=== PATIENT | female | born 1975 | race Caucasian/White ===

== ENCOUNTER 2017-08-25 16:11 | Inpatient (IN) | payer MEDICAID ==
[2017-08-25] VITALS (33 sets, daily range): BP systolic 53–176; BP diastolic 36–122; PULSE 74–91; RESP 12–38; TEMP 93; O2SAT 99–100
[~2017-08-25] VITALS: Ht 167.6 cm; Wt 80.3 kg
[~2017-08-25 16:11] MED LIST: DICL75 PO; IBUP600T26 PO; LEXA20TA PO; SERO100T PO
--- NOTE | 2017-08-25 16:19 | PD ---
HPI Chief Complaint: Status post arrest Time Seen by Provider: 16:19 Travel History International Travel<30 days: No Contact w/Intl Traveler<30days: No Traveled to known affect area: No History of Present Illness HPI Per EMS patient apparently just released from [facility] yesterday, she has had a hard time dealing with the fact that her significant other overdose and . And the family has mentioned that she has threatened in the past to commit suicide, apparently the patient has access not only to opiates on the streets but also sees prescribed benzodiazepines such as Xanax. Per chart review allergic to Keflex Per chart review past medical history significant for Dilaudid IV use, caffeine use, half a pack per day smoking history, bipolar history, depression anxiety, tubal ligation, PFSH Past Medical History Bipolar Disorder: Yes Anxiety: Yes Depression: Yes Cancer: No Cardiovascular Problems: No Diminished Hearing: No Endocrine: No Genitourinary: No Immune Disorder: No Insomnia: Yes Musculoskeletal: No Neurologic: Yes Psychiatric: Yes Reproductive: No (VAGINAL DELIVERIES X4) Respiratory: No Immunizations Current: No Para: 4 Tubal Ligation: Yes Past Surgical History Body Medical Devices: PIERCING OF NOSE,TONGUE AND BILATERAL EARS- NO JEWELRY IN PLACE Gynecologic Surgery: Yes (TUBAL) Social History Alcohol Use: No Tobacco Use: Yes (1/2 ppd) Substance Use: Yes (LAST USE "DILAUDID IV" AT 5 PM) Allergies-Medications (Allergen,Severity, Reaction): Coded Allergies: cephalexin (Unverified Allergy, Severe, 01/05/17) Reported Meds & Prescriptions Reported Meds & Active Scripts Active Diclofenac Sodium 75 Mg Tab 75 Mg PO BID PRN 10 Days Reported Lexapro (Escitalopram Oxalate) 20 Mg Tab 20 Mg PO DAILY Seroquel 100 mg (Quetiapine Fumarate) 100 Mg Tab 100 Mg PO BID Ibuprofen 600 Mg Tab 600 Mg PO QID PRN Review of Systems ROS Limitations: Clinical Condition Physical Exam Exam Limitations: Intoxication Narrative GENERAL: SKIN: Warm and dry. HEAD: Atraumatic. Normocephalic. EYES: Pupils equal and round. No scleral icterus. No injection or drainage. ENT: No nasal bleeding or discharge. Mucous membranes pink and moist. Intubated with a 7.5 ETT NECK: Trachea midline. No JVD. CARDIOVASCULAR: Regular rate and rhythm. RESPIRATORY: No accessory muscle use. Clear to auscultation. Breath sounds equal bilaterally. GASTROINTESTINAL: Abdomen soft, non-tender, nondistended. Hepatic and splenic margins not palpable. MUSCULOSKELETAL: Extremities without clubbing, cyanosis, or edema. No obvious deformities. NEUROLOGICAL: GCS 3 T PSYCHIATRIC: Unable to assess. Data Data Last Documented VS Vital Signs Date Time Temp Pulse Resp B/P (MAP) Pulse Ox O2 Delivery O2 Flow Rate FiO2 08/25/17 16:24 Ventilator 100 08/25/17 16:17 82 17 98/63 (75) 100 Orders Orders Electrocardiogram (08/25/17 16:20) Complete Blood Count With Diff (08/25/17 16:20) Comprehensive Metabolic Panel (08/25/17 16:20) Ckmb (Isoenzyme) Profile (08/25/17 16:20) Troponin I (08/25/17 16:20) B-Type Natriuretic Peptide (08/25/17 16:20) Prothrombin Time / Inr (Pt) (08/25/17 16:20) Act Partial Throm Time (Ptt) (08/25/17 16:20) Lipase (08/25/17 16:20) Urinalysis - C+S If Indicated (08/25/17 16:20) Thyroid Stimulating Hormone (08/25/17 16:20) Osmolality, Urine (08/25/17 16:20) Chest, Single Ap (08/25/17 16:20) Ct Brain W/O Iv Contrast(Rout) (08/25/17 16:20) Iv Access Insert/Monitor (08/25/17 16:20) Ecg Monitoring (08/25/17 16:20) Oximetry (08/25/17 16:20) Urinary Catheter Insert/Apply (08/25/17 16:20) Ng Gastric Tube Insert/Monitor (08/25/17 16:20) Ed Urine Pregnancytest Poc (08/25/17 16:20) Drug Screen, Random Urine (08/25/17 16:20) Alcohol (Ethanol) (08/25/17 16:20) Salicylates (Aspirin) (08/25/17 16:20) Tylenol (Acetaminophen) (08/25/17 16:20) Propofol 1000 Mg/100 Ml Inj (Diprivan 10 (08/25/17 16:30) Sodium Chlor 0.9% 1000 Ml Inj (Ns 1000 M (08/25/17 16:20) MDM Medical Decision Making Medical Screen Exam Complete: Yes Emergency Medical Condition: Yes Medical Record Reviewed: Yes Interpretation(s) EKG shows normal sinus rhythm, 85 bpm, short OR interval with upstroke delta wave noted possible WPW, also incomplete right bundle branch block pattern, Differential Diagnosis Cardiac arrest secondary to STEMI versus pneumothorax versus arrhythmia versus intoxication related Narrative Course Upon arrival patient is maintaining blood pressure and heart rate, apneic, but tolerating vent. Diagnosis Primary Impression: Postcardiac arrest/ROSC Severo Lewis MD Aug 25, 2017 16:19
[2017-08-25] MEDS ORDERED: SODIUM CHLOR 0.9% 1000 ML INJ 1,000 ML IV SCH ×2 (16:20→20:00)
[2017-08-25] MEDS ORDERED: PROPOFOL 1000 MG/100 ML INJ 100 ML IV PRN (16:30)
[2017-08-25] MEDS ORDERED: TERBUTALINE INJ 1 MG/ML AMP SQ PRN ×3 (16:45→18:15)
[2017-08-25] MEDS ORDERED: SODIUM CHLOR 0.9% 1000 ML INJ 1,000 ML IV ONE ×2 (16:45)
[2017-08-25] MEDS ORDERED: PHENYLEPHRINE INJ 40 MG in DEXTROSE 5% IN WATE 500 ML INJ 496 ML IV PRN ×2 (16:45)
--- NOTE | 2017-08-25 16:52 | RADRPT ---
EXAM DATE/TIME: 08/25/2017 16:36 [facility] COMPARISON: FOOT RIGHT COMPLETE ([id number]), March 31, 2015, 0:10. INDICATIONS : Status post cardiac arrest. Evaluate for ET and OG tube placements. MEDICAL HISTORY : Unobtainable. SURGICAL HISTORY : Unobtainable. ENCOUNTER: Initial ACUITY: 1 day PAIN SCORE: Non-responsive. LOCATION: chest FINDINGS: The endotracheal tubes in good position. The nasogastric tubes in good position. The lungs are clear. The heart is normal in size. There is no pneumothorax. The osseous structures are intact. CONCLUSION: 1. Support equipment in good position. 2. The lungs are clear. Cuate Tobar MD on August 25, 2017 at 16:46 Board Certified Radiologist. This report was verified electronically.
[2017-08-25] MEDS ORDERED: PHENYLEPHRINE HCL 10 MG/ML VIAL ONE (17:07)
[2017-08-25] MEDS ORDERED: NOREPINEPHRINE 4 MG/4 ML AMP ONE (17:14)
[2017-08-25] MEDS ORDERED: NALOXONE HCL 2 MG/2 ML VIAL IV PUSH ONE (17:15)
[2017-08-25 17:49] LABS: AUTOMATED NEUTROPHIL # 9.4 TH/MM3 (1.8-7.7); BASOPHIL # 0.1 TH/MM3 (0-0.2); BASOPHIL % 0.4 % (0.0-2.0); EOSINOPHIL % 0.1 % (0.0-4.0); HEMATOCRIT 43.5 % (35.0-46.0); HEMOGLOBIN 14.3 GM/DL (11.6-15.3); LYMPH % 11.1 % (9.0-44.0); LYMPHOCYTE # 1.3 TH/MM3 (1.0-4.8); MEAN CELL VOLUME 96.8 FL (80.0-100.0); MEAN CORPUSCULAR HEMOGLOBIN 31.8 PG (27.0-34.0); MEAN CORPUSCULAR HGB CONC 32.8 % (32.0-36.0); MEAN PLATELET VOLUME 10.5 FL (7.0-11.0); MONO % 9.3 % (0.0-8.0); MONOCYTE # 1.1 TH/MM3 (0-0.9); NEUT % 79.1 % (16.0-70.0); PLATELET COUNT 181 TH/MM3 (150-450); RED CELL DISTRIBUTION WIDTH 14.2 % (11.6-17.2); WHITE BLOOD COUNT 11.9 TH/MM3 (4.0-11.0)
[2017-08-25 17:59] LABS: INTERNATIONAL NORMALIZED RATIO 1.1 RATIO; PROTHROMBIN TIME - PATIENT 11.2 SEC (9.8-11.6)
[2017-08-25] MEDS ORDERED: ONDANSETRON HCL 4 MG/2 ML VIAL IV PUSH PRN (18:00)
[2017-08-25] MEDS ORDERED: MAGNESIUM OXIDE 400 MG TAB PO PRN (18:00)
[2017-08-25] MEDS ORDERED: POTASSIUM CHLOR 20 MEQ PREMIX 100 ML IV PRN ×2 (18:00)
[2017-08-25] MEDS ORDERED: SENNOSIDES 8.6 MG TAB PO PRN (18:00)
[2017-08-25] MEDS ORDERED: CHLORHEXIDINE GLUCONATE 2 % 1 PACK (2 CLOTHS) TOP PRN (18:00)
[2017-08-25] MEDS ORDERED: MAGNESIUM HYDROXIDE SUSP 30 ML CUP PO PRN (18:00)
[2017-08-25] MEDS ORDERED: POTASSIUM PHOSPHATE INJ 30 MMOL in SODIUM CHLOR 0.9% 250 ML INJ 250 ML IV PRN (18:00)
[2017-08-25] MEDS ORDERED: POTASSIUM CHLOR 40 MEQ PREMIX 100 ML IV PRN ×2 (18:00)
[2017-08-25] MEDS ORDERED: SODIUM PHOSPHATE INJ 30 MMOL in SODIUM CHLOR 0.9% 250 ML INJ 240 ML IV PRN (18:00)
[2017-08-25] MEDS ORDERED: MAGNESIUM SULFATE INJ 4 GM in SODIUM CHLORIDE 0.9% INJ 92 ML IV PRN (18:00)
[2017-08-25] MEDS ORDERED: RESP: ALBUTEROL 2.5 MG/IPRATROPIUM 0.5 MG NEB (PRN) INH (18:00)
[2017-08-25] MEDS ORDERED: POTASSIUM CHLORIDE 25 MEQ EFFERVESCENT TAB PO PRN (18:00)
[2017-08-25] MEDS ORDERED: POTASSIUM PHOSPHATE MONOBASIC 500 MG TAB PO PRN (18:00)
[2017-08-25] MEDS ORDERED: ACETAMINOPHEN 325 MG TAB PO PRN (18:00)
[2017-08-25] MEDS ORDERED: POTASSIUM PHOSPHATE MONOBASIC 500 MG TAB PO/TUBE PRN (18:00)
[2017-08-25] MEDS ORDERED: SODIUM CHLORIDE 0.9% FLUSH 10 ML FLUSH IV FLUSH PRN (18:00)
[2017-08-25] MEDS ORDERED: MAGNESIUM SULFATE INJ 2 GM in SODIUM CHLORIDE 0.9% INJ 96 ML IV PRN (18:00)
[2017-08-25] MEDS ORDERED: LACTULOSE SYRUP 20 GM/30 ML CUP PO PRN (18:00)
[2017-08-25] MEDS ORDERED: BISACODYL 10 MG SUPP RECTAL PRN (18:00)
[2017-08-25] MEDS ORDERED: MISCELLANEOUS NURSING INFORMATION XX SCH (18:00)
--- NOTE | 2017-08-25 18:14 | RADRPT ---
EXAM DATE/TIME: 08/25/2017 17:55 [facility] COMPARISON: CHEST SINGLE AP, August 25, 2017, 16:36. INDICATIONS : Central line placement MEDICAL HISTORY : Unobtainable SURGICAL HISTORY : Unobtainable ENCOUNTER: Initial ACUITY: 1 day PAIN SCORE: Non-responsive. LOCATION: Bilateral chest FINDINGS: A single view of the chest demonstrates the lungs to be symmetrically aerated without evidence of mas s, infiltrate or effusion. Support apparatus in good position The cardiomediastinal contours are unr emarkable. Osseous structures are intact. CONCLUSION: Line in good position without pneumothorax. Damien Tobar MD FACR on August 25, 2017 at 18:12 Board Certified Radiologist. This report was verified electronically.
[2017-08-25 18:15] LABS: ALBUMIN 3.5 GM/DL (3.4-5.0); BICARBONATE 15.9 MEQ/L (21.0-32.0); BLOOD UREA NITROGEN 21 MG/DL (7-18); CALCIUM 8.6 MG/DL (8.5-10.1); CHLORIDE 105 MEQ/L (98-107); CREATININE 2.24 MG/DL (0.50-1.00); GLOMERULAR FILTRATION RATE 24 ML/MIN (>89); GLUCOSE,RANDOM 64 MG/DL (74-106); SODIUM (NA) 141 MEQ/L (136-145)
[2017-08-25] MEDS ORDERED: GLUCAGON 1 MG/ML VIAL OTHER PRN (18:15)
[2017-08-25] MEDS ORDERED: DEXTROSE 50% IN WATER 50 ML VIAL(D50) IV PUSH PRN (18:15)
[2017-08-25] MEDS ORDERED: NOREPINEPHRINE-DEXTROSE DRIP 250 ML IV PRN (18:15)
[2017-08-25 18:16] LABS: ALT (GPT) 867 U/L (10-53)
[2017-08-25 18:30] LABS: ACETAMINOPHEN LESS THAN 2.0 MCG/ML (10.0-30.0); ALKALINE PHOSPHATASE 194 U/L (45-117); AST (GOT) 1358 U/L (15-37); TOTAL BILIRUBIN ADULT 0.5 MG/DL (0.2-1.0); TOTAL PROTEIN 7.6 GM/DL (6.4-8.2); TROPONIN I 0.26 NG/ML (0.02-0.05)
[2017-08-25] MEDS ORDERED: DEXTROSE 50% IN WATER 50 ML SYRINGE IV PUSH ONE (18:45)
--- NOTE | 2017-08-25 19:01 | HHI.HP ---
HPI Service Critical Care Medicine Primary Care Physician Unknown Admission Diagnosis S/P CARDIAC ARREST Diagnosis: Travel History International Travel<30 Days: No Contact w/Intl Traveler <30 Da: No Traveled to Known Affected Are: No History of Present Illness HPI This is a 42-year-old female ,per EMS [facility], she has had a hard time dealing with the fact that her significant other overdose and . And the family has mentioned that she has threatened in the past to commit suicide, apparently the patient has access not only to opiates on the streets but also sees prescribed benzodiazepines such as Xanax. Per EMS/ED report the patient was found unresponsive last known seen responsive/ normal approximately 2 hours prior to discovery at approximately 1358. At that time,upon arrival to of EMS personnel the patient pupils were fixed and dilated and the patient was apneic the patient was intubated, CPR initiated with ROSC after Narcan and several rounds of epinephrine. Upon initial presentation systolic blood pressure was 80s-90's. In the ED the patient received approximately 3 L of fluid. Critical care medicine was consulted. Phenylephrine infusion had been ordered but not set up for the patient. Upon my arrival to the ED the patient was noted to have a blood pressure 53/30, Levophed infusion was ordered. Emergent central line placed, and norepinephrine , phenylephrine, and epinephrine initiated. A second dose of naloxone was given with no response. Upon evaluation, pupils were noted to be 5-6 millimeters fixed and dilated. No response to painful stimuli, no gag, cough, or corneal reflexes were noted. EEG ,CT brain pending. Per chart review past medical history significant for Dilaudid IV use, Xanax use caffeine use, half a pack per day smoking history, bipolar history, depression anxiety, tubal ligation, . Urine drug screen is pending. History PFSH Past Medical History Bipolar Disorder: Yes Anxiety: Yes Depression: Yes Cancer: No Cardiovascular Problems: No Diminished Hearing: No Endocrine: No Genitourinary: No Immune Disorder: No Insomnia: Yes Musculoskeletal: No Neurologic: Yes Psychiatric: Yes Reproductive: No (VAGINAL DELIVERIES X4) Respiratory: No Immunizations Current: No Para: 4 Tubal Ligation: Yes Past Surgical History Body Medical Devices: PIERCING OF NOSE,TONGUE AND BILATERAL EARS- NO JEWELRY IN PLACE Gynecologic Surgery: Yes (TUBAL) Social History Alcohol Use: No Tobacco Use: Yes (/2 ppd) Substance Use: Yes (LAST USE "DILAUDID IV" AT 5 PM) Allergies-Medications Allergies-Medications (Allergen,Severity, Reaction): Coded Allergies: cephalexin (Unverified Allergy, Severe, 01/05/17) Reported Meds & Prescriptions Reported Meds & Active Scripts Active Diclofenac Sodium 75 Mg Tab 75 Mg PO BID PRN 10 Days Reported Lexapro (Escitalopram Oxalate) 20 Mg Tab 20 Mg PO DAILY Seroquel 100 mg (Quetiapine Fumarate) 100 Mg Tab 100 Mg PO BID Ibuprofen 600 Mg Tab 600 Mg PO QID PRN ROS Review of Systems ROS Limitations: Clinical Condition Physical Exam Vital Signs Vital Signs Date Time Temp Pulse Resp B/P (MAP) Pulse Ox O2 Delivery O2 Flow Rate FiO2 08/25/17 18:01 74 74/51 08/25/17 17:36 79 08/25/17 17:32 79 18 91/62 (72) 100 Ventilator 100 08/25/17 16:54 93.0 80 17 70/42 (51) 99 100 08/25/17 16:24 Ventilator 100 08/25/17 16:17 82 17 98/63 (75) 100 Physical Exam GENERAL: This is a 42-year-old well-developed well-nourished female, intubated on response SKIN: Warm and dry. HEAD: Atraumatic. Normocephalic. EYES: Pupils equal and round. 5 -6 mm fixed and dilated . No corneal reflexes. no scleral icterus. No injection or drainage. ENT: No nasal bleeding or discharge. Mucous membranes pink and moist. NECK: Trachea midline. No JVD. CARDIOVASCULAR: Normal rate, regular rhythm. RESPIRATORY: Mechanical ventilation . Apneic not overbreathing the ventilator. clear to auscultation. Breath sounds equal bilaterally. GASTROINTESTINAL: Abdomen soft, non-tender, nondistended. No guarding. Hypoactive bowel MUSCULOSKELETAL: Extremities without clubbing, cyanosis, or edema. No obvious deformities. NEUROLOGICAL: GCS 3T. No sedation ever received. No movement to painful stimuli. Negative cough, gag, corneal reflexes. Patient currently hypothermic rectal temperature 93F Laboratory Laboratory Tests Test 08/25/17 16:33 White Blood Count 11.9 Red Blood Count 4.50 Hemoglobin 14.3 Hematocrit 43.5 Mean Corpuscular Volume 96.8 Mean Corpuscular Hemoglobin 31.8 Mean Corpuscular Hemoglobin Concent 32.8 Red Cell Distribution Width 14.2 Platelet Count 181 Mean Platelet Volume 10.5 Neutrophils (%) (Auto) 79.1 Lymphocytes (%) (Auto) 11.1 Monocytes (%) (Auto) 9.3 Eosinophils (%) (Auto) 0.1 Basophils (%) (Auto) 0.4 Neutrophils # (Auto) 9.4 Lymphocytes # (Auto) 1.3 Monocytes # (Auto) 1.1 Eosinophils # (Auto) 0.0 Basophils # (Auto) 0.1 CBC Comment DIFF FINAL Differential Comment Prothrombin Time 11.2 Prothromb Time International Ratio 1.1 Activated Partial Thromboplast Time 27.8 Blood Urea Nitrogen 21 Creatinine 2.24 Random Glucose 64 Albumin 3.5 Calcium Level 8.6 Alanine Aminotransferase (ALT/SGPT) 867 Sodium Level 141 Potassium Level 4.7 Chloride Level 105 Carbon Dioxide Level 15.9 Anion Gap 20 Estimat Glomerular Filtration Rate 24 Lipase 198 Salicylates Level 3.0 Ethyl Alcohol Level LESS THAN 3 Result Diagram: 08/25/17 1633 08/25/17 1633 Imaging Last Impressions Chest X-Ray 08/25/17 1620 Signed Impressions: Service Date/Time: Friday, August 25, 2017 16:36 - CONCLUSION: 1. Support equipment in good position. 2. The lungs are clear. Cuate Tobar MD Septic Shock Reassessment Septic shock perfusion: reassessment completed Caprini VTE Risk Assessment Caprini VTE Risk Assessment: Mod/High Risk (score >= 2) Caprini Risk Assessment Model Point Value = 1 Point Value = 2 Point Value = 3 Point Value = 5 Age 41-60 Minor surgery BMI > 25 kg/m2 Swollen legs Varicose veins or History of unexplained or recurrent spontaneous Oral contraceptives or hormone replacement Sepsis (< 1 month) Serious lung disease, including pneumonia (< 1 month) Abnormal pulmonary function Acute myocardial infarction Congestive heart failure (< 1 month) History of inflammatory bowel disease Medical patient at bed rest Age 61-74 Arthroscopic surgery Major open surgery (> 45 min) Laparoscopic surgery (> 45 min) Malignancy Confined to bed (> 72 hours) Immobilizing plaster cast Central venous access Age >= 75 History of VTE Family history of VTE Factor V Leiden Prothrombin [id number] Lupus anticoagulant Anticardiolipin antibodies Elevated serum homocysteine Heparin-induced thrombocytopenia Other congenital or acquired thrombophilia Stroke (< 1 month) Elective arthroplasty Hip, pelvis, or leg fracture Acute spinal cord injury (< 1 month) Prophylaxis Regimen Total Risk Factor Score Risk Level Prophylaxis Regimen 0-1 Low Early ambulation 2 Moderate Order ONE of the following: *Sequential Compression Device (SCD) *Heparin 5000 units SQ BID 3-4 Higher Order ONE of the following medications: *Heparin 5000 units SQ TID *Enoxaparin/Lovenox 40 mg SQ daily (WT < 150 kg, CrCl > 30 mL/min) *Enoxaparin/Lovenox 30 mg SQ daily (WT < 150 kg, CrCl > 10-29 mL/min) *Enoxaparin/Lovenox 30 mg SQ BID (WT < 150 kg, CrCl > 30 mL/min) AND/OR *Sequential Compression Device (SCD) 5 or more Highest Order ONE of the following medications: *Heparin 5000 units SQ TID (Preferred with Epidurals) *Enoxaparin/Lovenox 40 mg SQ daily (WT < 150 kg, CrCl > 30 mL/min) *Enoxaparin/Lovenox 30 mg SQ daily (WT < 150 kg, CrCl > 10-29 mL/min) *Enoxaparin/Lovenox 30 mg SQ BID (WT < 150 kg, CrCl > 30 mL/min) AND *Sequential Compression Device (SCD) Assessment and Plan Problem List: (1) Suicidal intent ICD Code: R45.851 - Suicidal ideations Status: Acute (2) Cardiac arrest, cause unspecified ICD Code: I46.9 - Cardiac arrest, cause unspecified Status: Acute (3) Bipolar 1 disorder ICD Code: F31.9 - Bipolar disorder, unspecified Status: Chronic (4) Hypoglycemia ICD Code: E16.2 - Hypoglycemia, unspecified Status: Acute (5) Transaminitis ICD Code: R74.0 - Nonspecific elevation of levels of transaminase and lactic acid dehydrogenase [LDH] Status: Acute (6) JAGDISH (acute kidney injury) ICD Code: N17.9 - Acute kidney failure, unspecified Status: Acute (7) Acute hypoxemic respiratory failure ICD Code: J96.01 - Acute respiratory failure with hypoxia Status: Acute (8) Hypothermia due to non-environmental cause ICD Code: T68.XXXA - Hypothermia, initial encounter Status: Acute (9) Rhabdomyolysis ICD Code: M62.82 - Rhabdomyolysis Status: Acute Assessment and Plan Assessment This is a 42-year-old female with a history of bipolar disorder and depression, that made verbal suicide attempt. Patient down for unknown period of time apneic with asystolic rhythm with unknown ingestion of substances. The patient is S/P ROSC after several rounds of epinephrine . Currently the patient is unresponsive having received no sedation. Prognosis is guarded at this time. Plan by systems: Neurologic: Toxic encephalopathy Possible anoxic brain injury Hypothermia Neuro checks per ICU protocol Avoid all sedatives Temperature 93 F rectal (33.9 C), maintain patient's temperature range 34-35 C for cardiac benefits Avoid acetaminophen secondary to elevated LFT's Follow-up CT brain Obtain EEG Neurology consulted Obtain ammonia level Obtain urine drug screen Obtain Tylenol level Contact poison control Unknown at this time his Xanax was ingested will flumazenil with total max dose 3mg Respiratory: Acute hypoxemic respiratory failure Tobacco use disorder Maintain O2 saturation greater than 92% Duo nebs every 6 hours schedule every 2 hours as needed Ventilator bundle Obtain ABG wean FiO2 Cardiovascular: Cardiogenic shock S/P cardiac arrest Obtain echo Obtain 12-lead EKG, repeat in 4 hours , monitor QT interval for possible TCA ingestion Patient currently on norepinephrine and phenylephrine infusions Maintain MAP> 65mmHg Obtain lactate levels BNP WNL Renal: JAGDISH Rhabdomyolysis Insert Zapien and maintain Monitor creatinine kinase levels-initial 1241 Most likely secondary to hypotension -- Strict I/Os FEN/GI: Electrolyte derangement Transaminitis/shock liver secondary to hypo-perfusion Insert OGT-maintain NPO status for now Monitor BMP Creatinine 2.24, continue to trend Zofran for nausea Famotidine GI prophylaxis Will replete electrolytes as needed AST 1358, alk phos 867 Obtain hepatitis panel Heme/ID: Leukocytosis Monitor CBC Obtain cultures if clinically indicated Endocrine: Hypoglycemia 1 amp D50 x 1 dose now. Repeat blood glucose level Glucose monitoring per ICU protocol, low-dose regimen -- SSI Prophylaxis: GI Prophylaxis Famotidine DVT Prophylaxis -- SCDs Heparin on hold at this time, patient hypothermic and awaiting CT brain Lines: Peripheral IVs x2. Left IJ central line 08/25 Dispo: my billing statement This patient remains critically ill with one or more organ systems which are or may become a threat to life. I have spent in excess of 60 minutes discontinuously in the care and management of this patient. This time is exclusive of procedures, and includes, but is not limited to, evaluation of the patient, review of the medical record, discussions with family, consultants, nursing staff, or respiratory therapy, and documentation in the medical record. Palliative care consulted to define goals of care. Poison control contacted due to lack of information regarding ingestion of substances. Patient will receive flumazenil up to maximum doses of 3 mg, serial EKGs will be performed to rule out TCA ingestion with widening of the QT interval. Attempts made to contact family Code Status Full Discussed Condition With Dr. Lewis, ED RN at bedside. Was able to contact patient's mother Ms. Ethan Tamez [phone] in [place], [place] and provided her with patient' s medical status Tiarra Malone MD Aug 25, 2017 19:01
[2017-08-25] MEDS ORDERED: FLUMAZENIL 0.5 MG/5 ML VIAL IV PUSH ONE (19:30)
--- NOTE | 2017-08-25 19:47 | RADRPT ---
EXAM DATE/TIME: 08/25/2017 19:34 [facility] COMPARISON: No previous studies available for comparison. INDICATIONS : Post cardiac arrest; possible overdose. RADIATION DOSE: 56.35 CTDIvol (mGy) MEDICAL HISTORY : IV drug abuse. SURGICAL HISTORY : Tubal ligation. ENCOUNTER: Initial ACUITY: 1 day PAIN SCALE: Non-responsive LOCATION: cranial TECHNIQUE: Multiple contiguous axial images were obtained of the head. Using automated exposure control and adj ustment of the mA and/or kV according to patient size, radiation dose was kept as low as reasonably a chievable to obtain optimal diagnostic quality images. DICOM format image data is available electro nically for review and comparison. FINDINGS: There is generalized cerebral edema with obliteration of the cisterns. Ventricles are small. There is no parenchymal hemorrhage. No extra-axial fluid collections. Similar findings are present in the posterior fossa CONCLUSION: Diffuse cerebral edema suspicious for an anoxic event. Damien Tobar MD FACR on August 25, 2017 at 19:44 Board Certified Radiologist. This report was verified electronically.
[2017-08-25] MEDS: CHLORHEXIDINE 0.12% (ORAL KIT) 15 ML CUP MT SCH (20:00)
[2017-08-25 20:01] LABS: BACTERIA, URINE RARE /hpf; BILIRUBIN, URINE NEG (NEG); BLOOD, URINE MOD (NEG); GLUCOSE,URINE NEG (NEG); KETONE, URINE NEG (NEG); MUCUS URINE FEW /lpf (OCC); NITRITE,URINE NEG (NEG); SQUAMOUS EPITHELIAL CELL URINE <1 /hpf (0-5); URINE COLOR YELLOW (YELLW/STRAW); URINE LEUKOCYTE ESTERASE NEG (NEG)
--- NOTE | 2017-08-25 20:36 | RADRPT ---
EXAM DATE/TIME: 08/25/2017 20:19 [facility] COMPARISON: CHEST SINGLE AP, August 25, 2017, 17:55. INDICATIONS : Respiratory failure. MEDICAL HISTORY : None. SURGICAL HISTORY : None. ENCOUNTER: Initial ACUITY: 1 day PAIN SCORE: Non-responsive. LOCATION: Bilateral chest FINDINGS: Support apparatus in good position. Developing parenchymal changes right base. Left lung clear. No pneumothorax. CONCLUSION: Developing parenchymal changes right base. Damien Tobar MD FACR on August 25, 2017 at 20:33 Board Certified Radiologist. This report was verified electronically.
[2017-08-25] MEDS: INSULIN ASPART SUPPLEMENTAL SCALE SQ SCH (21:00)
[2017-08-25] MEDS: SODIUM CHLORIDE 0.9% FLUSH 10 ML FLUSH IV FLUSH SCH (21:00)
[2017-08-25] MEDS: RESP: ALBUTEROL 2.5 MG/IPRATROPIUM 0.5 MG NEB (SCH) INH (21:37)
[2017-08-25 21:40] LABS: LACTIC ACID SEPSIS PROTOCOL 3.6 mmol/L (0.4-2.0)
[2017-08-26] VITALS (59 sets, daily range): BP systolic 67–171; BP diastolic 46–109; PULSE 67–132; RESP 0–24; O2SAT 86–100
[2017-08-26] MEDS ORDERED: SODIUM CHLORID 0.9% 500 ML INJ 500 ML IV ONE (03:00)
[2017-08-26 03:03] LABS: ACETAMINOPHEN LESS THAN 2.0 MCG/ML (10.0-30.0); ALBUMIN 2.7 GM/DL (3.4-5.0); ALKALINE PHOSPHATASE 140 U/L (45-117); ALT (GPT) 818 U/L (10-53); AST (GOT) 1617 U/L (15-37); DIRECT BILIRUBIN ADULT 0.4 MG/DL (0.0-0.2); INDIRECT BILIRUBIN 0.4 MG/DL (0.0-0.8); TOTAL BILIRUBIN ADULT 0.8 MG/DL (0.2-1.0); TOTAL PROTEIN 5.8 GM/DL (6.4-8.2)
[2017-08-26] MEDS: SODIUM CHLOR 0.9% 1000 ML INJ 1,000 ML IV SCH ×3 (03:36→19:36)
[2017-08-26] MEDS: RESP: ALBUTEROL 2.5 MG/IPRATROPIUM 0.5 MG NEB (SCH) INH ×4 (03:45→20:17)
[2017-08-26] MEDS: CHLORHEXIDINE GLUCONATE 2 % 1 PACK (2 CLOTHS) TOP SCH (04:00)
[2017-08-26] MEDS: PHENYLEPHRINE INJ 80 MG in DEXTROSE 5% IN WATE 500 ML INJ 492 ML IV PRN ×10 (04:06→21:56)
[2017-08-26] MEDS: DOCUSATE SODIUM 50 MG/SENNA 8.6 MG TAB PO SCH ×3 (04:09→21:00)
[2017-08-26] MEDS: HEPARIN SODIUM - SQ 10,000 UNITS/ML VIAL SQ SCH ×3 (04:09→22:09)
[2017-08-26] MEDS: FAMOTIDINE 20 MG/2 ML VIAL IV PUSH SCH ×3 (04:09→22:08)
[2017-08-26] MEDS: NOREPINEPHRINE-DEXTROSE DRIP 250 ML IV PRN ×4 (04:14→18:26)
[2017-08-26 05:50] LABS: BASOPHIL % 0.3 % (0.0-2.0); HEMATOCRIT 43.2 % (35.0-46.0); HEMOGLOBIN 14.5 GM/DL (11.6-15.3); LYMPH % 11.4 % (9.0-44.0); LYMPHOCYTE # 0.3 TH/MM3 (1.0-4.8); MEAN CELL VOLUME 93.4 FL (80.0-100.0); MEAN CORPUSCULAR HEMOGLOBIN 31.3 PG (27.0-34.0); MEAN CORPUSCULAR HGB CONC 33.5 % (32.0-36.0); MEAN PLATELET VOLUME 9.2 FL (7.0-11.0); MONOCYTE # 0.1 TH/MM3 (0-0.9); NEUT % 81.3 % (16.0-70.0); PLATELET COUNT 136 TH/MM3 (150-450); RED BLOOD COUNT 4.62 MIL/MM3 (4.00-5.30); RED CELL DISTRIBUTION WIDTH 14.5 % (11.6-17.2); WHITE BLOOD COUNT 2.4 TH/MM3 (4.0-11.0)
[2017-08-26 05:58] LABS: INTERNATIONAL NORMALIZED RATIO 1.2 RATIO; PROTHROMBIN TIME - PATIENT 12.3 SEC (9.8-11.6)
[2017-08-26 07:01] LABS: ALBUMIN 2.7 GM/DL (3.4-5.0); BICARBONATE 19.4 MEQ/L (21.0-32.0); CALCIUM 7.1 MG/DL (8.5-10.1); CALCIUM-PROTEIN CORRECTED 7.9 MG/DL (8.5-10.1); CREATININE 1.53 MG/DL (0.50-1.00); MAGNESIUM 1.8 MG/DL (1.5-2.5); PHOSPHORUS 3.8 MG/DL (2.5-4.9); TOTAL BILIRUBIN ADULT 0.9 MG/DL (0.2-1.0); TOTAL PROTEIN 5.6 GM/DL (6.4-8.2)
[2017-08-26] MEDS ORDERED: POTASSIUM CHLORIDE 25 MEQ EFFERVESCENT TAB PO PRN (07:30)
[2017-08-26] MEDS ORDERED: POTASSIUM PHOSPHATE MONOBASIC 500 MG TAB PO/TUBE PRN (07:30)
[2017-08-26] MEDS ORDERED: POTASSIUM CHLOR 40 MEQ PREMIX 100 ML IV PRN ×2 (07:30)
[2017-08-26] MEDS ORDERED: SODIUM PHOSPHATE INJ 30 MMOL in SODIUM CHLOR 0.9% 250 ML INJ 240 ML IV PRN (07:30)
[2017-08-26] MEDS ORDERED: POTASSIUM CHLOR 20 MEQ PREMIX 100 ML IV PRN (07:30)
[2017-08-26] MEDS ORDERED: POTASSIUM PHOSPHATE MONOBASIC 500 MG TAB PO PRN (07:30)
[2017-08-26] MEDS ORDERED: MAGNESIUM SULFATE INJ 4 GM in SODIUM CHLORIDE 0.9% INJ 92 ML IV PRN (07:30)
[2017-08-26] MEDS ORDERED: MAGNESIUM OXIDE 400 MG TAB PO PRN (07:30)
[2017-08-26] MEDS ORDERED: MAGNESIUM SULFATE INJ 2 GM in SODIUM CHLORIDE 0.9% INJ 96 ML IV PRN (07:30)
[2017-08-26] MEDS ORDERED: POTASSIUM PHOSPHATE INJ 30 MMOL in SODIUM CHLOR 0.9% 250 ML INJ 250 ML IV PRN (07:30)
[2017-08-26] MEDS: EPINEPHrine (1:1000) INJ 2 MG in DEXTROSE 5% IN WATER INJ 250 ML IV PRN ×4 (07:42→17:02)
[2017-08-26] MEDS: SODIUM BICARBONATE 8.4% INJ 150 MEQ in SODIUM CHLOR 0.9% 1000 ML INJ 850 ML IV SCH ×2 (07:42→17:01)
[2017-08-26] MEDS ORDERED: POTASSIUM CHLORIDE 25 MEQ EFFERVESCENT TAB PO ONE (07:45)
[2017-08-26] MEDS: CHLORHEXIDINE 0.12% (ORAL KIT) 15 ML CUP MT SCH ×2 (08:00→19:54)
[2017-08-26] MEDS: INSULIN ASPART SUPPLEMENTAL SCALE SQ SCH ×4 (08:00→21:00)
[2017-08-26] MEDS: POTASSIUM CHLOR 20 MEQ PREMIX 100 ML IV PRN ×5 (08:24→18:59)
[2017-08-26] MEDS: SODIUM CHLORIDE 0.9% FLUSH 10 ML FLUSH IV FLUSH SCH ×2 (08:26→19:54)
[2017-08-26] MEDS: ARTIFICIAL TEARS OPTH SOLN 15 ML BTL EACH EYE SCH ×3 (09:00→18:00)
--- NOTE | 2017-08-26 10:11 | PD.CONS ---
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 (daughter and co-proxy) NO PHONE Ethan Tamez (mother) [phone] . Prognosis Patient has suffered a severe hypoxic brain injury. Neurologic exam shows severe deficits including fixed dilated pupils, lack of gag, lack of corneal reflexes. Head CT shows significant cerebral edema. Preliminary EEG reading shows significant encephalopathy. Patient is requiring 3 pressors to maintain blood pressure. Cardiac or progression to brain is highly likely at this point. There is essentially no reasonable probability of meaningful recovery. . Code Status: Alternative Code (No chest compressions; no shock.) Plan == Code Status: Alternate code. --No chest compressions; no shock == Medical decision making: Patient is currently incapacitated. There is no reasonable probability that she will recover capacity to make her own healthcare decisions. The patient, reportedly, is still legally to Jonel Madrigal. I have personally spoken to Mr. Madrigal on 08/26/2017 ) and he confirms that he has not really been involved in the patient's life for over 15 years and does not want to participate in healthcare decision making. Proxy healthcare decision making therefore falls to the patient's 2 adult daughters -- Lesvia and Selena ==Goals of medical treatment: I have personally spoken to both adult daughters who are the healthcare proxy's. They would like us to try and keep their mother alive until additional family arrived. However, they agreed to no chest compressions and no shock should she have a cardiac arrest. They understand the severity of the anoxic injury. They appear amenable to withdrawal of life support once family has had a chance to visit. == Symptoms * Pain: patient's old records indicate she may have suffered from chronic pain particularly in the back. Current sources of pain might include prolonged bedbound status; orotracheal and orogastric intubations; vascular access line; Zapien catheter; wrist restraints. Given current neurologic exam, it is uncertain to what extent patient is able to perceive pain. No recommendations for pain management at this time. Would want to avoid any sedating medications to closely observe neurologic status. * Dyspnea: Dyspnea is currently being managed by mechanical ventilation. Would recommend against any sedating medications at this time so as not to interfere with neurologic exam. * Encephalopathy: This is likely from the patient's anoxic injury. Given that she has been given Narcan and multiple doses of flumazenil, it is unlikely that encephalopathy is due to a lingering drug effects. == Case was discussed with Dr. malone and bedside nurse. == The patient's 12-year-old daughter discovered her when breathing was agonal. I have met this daughter-- Reddy. I have offered social worker psychiatric services. I have also informed her father regarding children's bereavement services. == Palliative care will continue to follow to assist with symptom management and to further clarify goals of medical treatment as the clinical course evolves. . Time Spent Total Floor Time (mins): 100 (Total fluoroscopy time included chart review; patient examination; discussion of case with Dr. Malone; collaboration with bedside nurse; above-referenced phone calls and in person discussions with family members; and documentation.) Face to Face Time (mins): 20 >50% Counseling/Coord of Care: Yes Thank you for the opportunity to participate in the care of Ms. Madrigal. . Attestation To help prompt me to consider important information that might be impacting today's encounter and assessment, information from prior notes written by myself or my colleagues may have been "brought forward" into today's note. My signature on this note, however, is an attestation that I personally performed the exam, history, and/or decision-making noted today, and, unless otherwise indicated, the interactions with patient, family, and staff as well as the review of records all occurred today. I also attest that the listed assessment and stated plan reflect my best clinical judgment today based on the combination of historical information, prior notes, and today's exam/ interactions. When time spent is documented, it refers only to time spent today by the signer, or if indicated, combined time spent today by collaborating physician/nurse practitioner. . Arley Hill MD Aug 26, 2017 10:11
--- NOTE | 2017-08-26 12:21 | MB ---
cc: Lena Abbott MD DATE: 08/26/2017 REASON FOR CONSULTATION: Anoxic encephalopathy. HISTORY OF PRESENT ILLNESS: History is taken from the chart and ____. This is a 42-year-old woman recently released from residential the day before with some issues regarding a significant other that overdosed and . She was having a hard time dealing with it. Apparently family had mentioned that she had threatened in the past to commit suicide. Apparently, the patient has access not only to medication opiates, but also prescribed benzos such as Xanax. She was found unresponsive, last known seen normal 2 hours prior to discovery at 1358 per EMS ED report. At that time, upon arrival, her pupils were fixed and dilated, apneic, intubated. Narcan and epinephrine were given upon initial presentation. Systolic blood pressure was in the 80s-90s. She received 3 liters of fluid, put on phenylephrine. Neurology is asked to evaluate her for anoxic encephalopathy. Her EEG was just completed. It looks diffusely abnormal, low-amplitude, slow but official report will be forthcoming. CT brain shows cerebral edema, suspicious for anoxic encephalopathy. Currently, she is not on any sedation, only pressors. PAST MEDICAL HISTORY: Per chart of bipolar, anxiety, and depression. ALLERGIES: CEPHALEXIN. REPORTED MEDICATIONS: Lexapro, Seroquel, and ibuprofen. PHYSICAL EXAMINATION: VITAL SIGNS: Temperature is 91.9 core, pulse 97, respiratory rate 17. I do not see her overbreathing. Blood pressure 108/80. GENERAL: She is currently on norepinephrine and phenylephrine. She is intubated, on a ventilator. I do not see her overbreathing. NEUROLOGIC: Her pupils are fixed and dilated. No corneal reflex. No oculocephalic. She does not respond to verbal or noxious stimuli. No withdrawal. Flaccid tone. DTRs are blunted throughout. Toes are neutral. Cerebellar gait cannot be assessed. LABORATORY DATA: Reviewed. Tox screen is positive for benzos and cocaine. Chemistries show AST today at 1496, ALT 776; calcium 7.1, corrected 7.9. CBC: White count is 2.4 and platelets 136,000. Hep C, IgG antibody positive. IMAGING STUDIES: CT, diffuse cerebral edema suspicious for anoxic event. Chest x-ray yesterday, lungs appear clear. IMPRESSION AND PLAN: Exam is consistent with anoxic encephalopathy. The patient is not on any sedating medication. At this point in time, we will get the official report from EEG; however, prognosis for any meaningful recovery is nil at this point given her exam. I see that palliative is on the case. Continue current care until POA family makes a decision. Followup as needed. Please call me with any questions and/or concerns; however, her prognosis is extremely grave with most likely no meaningful recovery neurologically. MD VIVIAN Cardozo/RICH , 11:48 AM , 12:20 PM
[2017-08-26] MEDS ORDERED: VASOPRESSIN 20 UNITS/ML VIAL ONE (13:44)
--- NOTE | 2017-08-26 14:10 | HHI.CCPN ---
Subjective Remarks/Hospital Course This is a 42-year-old female ,per EMS patient apparently just released from halfway yesterday, she has had a hard time dealing with the fact that her significant other overdose and . And the family has mentioned that she has threatened in the past to commit suicide, apparently the patient has access not only to opiates on the streets but also sees prescribed benzodiazepines such as Xanax. Per EMS/ED report the patient was found unresponsive last known seen responsive/ normal approximately 2 hours prior to discovery at approximately 1358. At that time,upon arrival to of EMS personnel the patient pupils were fixed and dilated and the patient was apneic the patient was intubated, CPR initiated with ROSC after Narcan and several rounds of epinephrine. Upon initial presentation systolic blood pressure was 80s-90's. In the ED the patient received approximately 3 L of fluid. Critical care medicine was consulted. Phenylephrine infusion had been ordered but not set up for the patient. Upon my arrival to the ED the patient was noted to have a blood pressure 53/30, Levophed infusion was ordered. Emergent central line placed, and norepinephrine , phenylephrine, and epinephrine initiated. A second dose of naloxone was given with no response. Upon evaluation, pupils were noted to be 5-6 millimeters fixed and dilated. No response to painful stimuli, no gag, cough, or corneal reflexes were noted. EEG ,CT brain pending. Per chart review past medical history significant for Dilaudid IV use, Xanax use caffeine use, half a pack per day smoking history, bipolar history, depression anxiety, tubal ligation, . Urine drug screen is pending. Subjective : 08/26: Late entry note. Patient seen at 6 AM. no acute change in neurological status overnight. Patient remains encephalopathic. CT of brain showed diffuse cerebral edema most likely anoxic injury. EEG performed this a.m., results. The patient remains hemodynamically unstable on now 3 vasopressor vacations epinephrine, Levophed, phenylephrine. Patient was noted to have low bicarb level . Sodium bicarbonate infusion and also instituted. Extensive discussion with family with palliative care patient was made DNR/alternate CODE STATUS. Family members in route to include mother from out of town. Patient noted to be on maximum doses of vasopressor, vasopressin added to medication regimen. Repeat ABG pending. Neurological evaluation performed, prognosis is very poor, with no possible meaningful neurological recovery. Objective Vital Signs Date Time Temp Pulse Resp B/P (MAP) Pulse Ox O2 Delivery O2 Flow Rate FiO2 08/26/17 13:30 77/49 08/26/17 13:14 100 08/26/17 11:45 93.7 17 86 08/26/17 08:19 65 08/25/17 18:58 Ventilator Intake and Output 08/26/17 08/26/17 08/27/17 08:00 16:00 00:00 Intake Total 120 ml Output Total 2850 ml Balance -2730 ml Result Diagram: 08/26/17 0525 08/26/17 0525 Other Results Microbiology Date/Time Source Procedure Growth Status 08/25/17 20:10 Stool Stool Stool Occult Blood (PRESTON) - Final HEMOCCULT POSITIVE Complete Laboratory Tests Test 08/25/17 21:00 Blood Gas Puncture Site RT RADIAL Blood Gas Patient Temperature 98.6 Blood Gas HCO3 16 mmol/L (22-26) Blood Gas Base Excess -8.7 mmol/L (-2-2) Blood Gas Oxygen Saturation 97 % (90-100) Arterial Blood pH 7.31 (7.380-7.420) Arterial Blood Partial Pressure CO2 34 mmHg (38-42) Arterial Blood Partial Pressure O2 149 mmHg (61-120) Arterial Blood Oxygen Content 19.9 Vol % (12.0-20.0) Arterial Blood Carboxyhemoglobin 0.7 % (0-4) Arterial Blood Methemoglobin 1.2 % (0-2) Blood Gas Hemoglobin 14.4 G/DL (12.0-16.0) Oxygen Delivery Device VENTILATOR Blood Gas Ventilator Setting PVRC/ AC Blood Gas Inspired Oxygen 50 % Imaging Last Impressions Head CT 08/25/17 1844 Signed Impressions: Service Date/Time: Friday, August 25, 2017 19:34 - CONCLUSION: Diffuse cerebral edema suspicious for an anoxic event. Damien Tobar MD FACR Chest X-Ray 08/25/17 162 Signed Impressions: Service Date/Time: Friday, August 25, 2017 16:36 - CONCLUSION: 1. Support equipment in good position. 2. The lungs are clear. Cuate Tobar MD Last Impressions Chest X-Ray 08/25/17 1620 Signed Impressions: Service Date/Time: Friday, August 25, 2017 16:36 - CONCLUSION: 1. Support equipment in good position. 2. The lungs are clear. Cuate Tobar MD Objective Remarks GENERAL: This is a 42-year-old well-developed well-nourished female, intubated unresponsive SKIN: Warm and dry. HEAD: Atraumatic. Normocephalic. EYES: Pupils equal and round. 5 -6 mm fixed and dilated . No corneal reflexes. no scleral icterus. No injection or drainage. ENT: No nasal bleeding or discharge. Mucous membranes pink and moist. NECK: Trachea midline. No JVD. CARDIOVASCULAR: Normal rate, regular rhythm. RESPIRATORY: Mechanical ventilation . Apneic not overbreathing the ventilator. clear to auscultation. Breath sounds equal bilaterally. GASTROINTESTINAL: Abdomen soft, non-tender, nondistended. No guarding. Hypoactive bowel sounds MUSCULOSKELETAL: Extremities without clubbing, cyanosis, or edema. No obvious deformities. NEUROLOGICAL: GCS 3T. No sedation ever received. No movement to painful stimuli. Negative cough, gag, corneal reflexes. Urinary Catheter: Yes Zapien insert reason: Measure Accurate Output Date of Insertion: Aug 25, 2017 A/P Problem List: (1) Suicidal intent ICD Code: R45.851 - Suicidal ideations Status: Acute (2) Cardiac arrest, cause unspecified ICD Code: I46.9 - Cardiac arrest, cause unspecified Status: Acute (3) Bipolar 1 disorder ICD Code: F31.9 - Bipolar disorder, unspecified Status: Chronic (4) Hypoglycemia ICD Code: E16.2 - Hypoglycemia, unspecified Status: Acute (5) Transaminitis ICD Code: R74.0 - Nonspecific elevation of levels of transaminase and lactic acid dehydrogenase [LDH] Status: Acute (6) JAGDISH (acute kidney injury) ICD Code: N17.9 - Acute kidney failure, unspecified Status: Acute (7) Acute hypoxemic respiratory failure ICD Code: J96.01 - Acute respiratory failure with hypoxia Status: Acute (8) Hypothermia due to non-environmental cause ICD Code: T68.XXXA - Hypothermia, initial encounter Status: Acute (9) Rhabdomyolysis ICD Code: M62.82 - Rhabdomyolysis Status: Acute Assessment and Plan Plan by systems: Neurologic: Anoxic brain injury Hypothermia Neuro checks per ICU protocol Avoid all sedatives Apply bearhug and maintain normothermia temperature 37 Avoid acetaminophen secondary to elevated LFT's 08/25 CT brain-diffuse cerebral edema suspicious for anoxic event 08/26 EEG-results pending Neurology-Dr. Abbott-evaluation no meaningful neurological recovery anticipated Ammonia level-24 08/25 urine drug screen-positive for benzodiazepines, cocaine Poison control following-no further recommendations at this time Flumazenil given on 08 25 no response Respiratory: Acute hypoxemic respiratory failure Tobacco use disorder Mixed acidosis Maintain O2 saturation greater than 92% Duo nebs every 6 hours schedule every 2 hours as needed Ventilator bundle Obtain ABG wean FiO2 as tolerated Cardiovascular: Cardiogenic shock S/P cardiac arrest 08/26 echo [id number] results 08/26 EKG- QT interval no change Patient currently on norepinephrine, phenylephrine, epi and vasopressin to be initiated Maintain MAP> 65mmHg BNP WNL Apply flowtrach-monitor hemodynamic profile Renal: JAGDISH Rhabdomyolysis Insert Zapien and maintain Monitor creatinine kinase levels-initial 1241 Most likely secondary to hypotension -- Strict I/Os FEN/GI: Electrolyte derangement Transaminitis/shock liver secondary to hypo-perfusion Insert OGT-maintain NPO status for now Monitor BMP Creatinine 2.24, continue to trend Zofran for nausea Famotidine GI prophylaxis Will replete electrolytes as needed AST 1358-> 1617, LFTs worsening 08/25 hepatitis panel- Hep C IgG antibody positive 08/26 obtain lactate level mixed acidosis, metabolic secondary to most likely liver unable to clear lactate and ischemia/hypoperfusion to organs Heme/ID: Leukocytosis Monitor CBC Obtain cultures if clinically indicated Endocrine: Hypoglycemia 1 amp D50 x 1 dose now. Repeat blood glucose level Glucose monitoring per ICU protocol, low-dose regimen -- SSI Prophylaxis: GI Prophylaxis Famotidine DVT Prophylaxis -- SCDs Heparin 5000u SQ BID Lines: Peripheral IVs x2. Left IJ central line 08/25, right radial A-line 08/26 Dispo: my billing statement This patient remains critically ill with one or more organ systems which are or may become a threat to life. I have spent in excess of 47 minutes discontinuously in the care and management of this patient. This time is exclusive of procedures, and includes, but is not limited to, evaluation of the patient, review of the medical record, discussions with family, consultants, nursing staff, or respiratory therapy, and documentation in the medical record. 08/26: Dr. Hill met with family, see note. Extensive discussion with family patient may alternate CODE STATUS.. Patient requiring escalating doses of vasopressors in order to maintain blood pressure. Patient's mother and rest of the family enroute from out of town, continue aggressive measures short of ACLS protocol to include chest compressions and defibrillation. Katyaartemio Polk and to see family, tentative plan to meet with family this evening upon their arrival, upon request. Physician Tiarra Lieberman MD Aug 26, 2017 14:10
--- NOTE | 2017-08-26 17:16 | PD.PROCEDR ---
Central Line Procedure REASON FOR PROCEDURE Central venous access PROCEDURE PERFORMED Central line placement: Left internal jugular CONSENT Emergent procedure secondary to hemodynamic instability blood pressure 53/30 in the ED ANESTHESIA Local injection of 1% Lidocaine DESCRIPTION OF THE PROCEDURE The patient was placed in supine, mild Trendelenburg position. The area was exposed and cleansed with ChloraPrep, times two. Large sterile drape was used to cover the patient, with the site exposed, under sterile conditions including cap, face mask, sterile gown, and sterile gloves. On single attempt, the introducer needle was inserted with negative pressure in syringe and venous flash was obtained. The guide wire was then advanced without any restriction and the needle was removed. The dilator was used without any complications. Using Seldinger technique the [ ] catheter was advanced over the guide wire to a depth of [ ] centimeters. The guide wire was removed. All ports were aspirated with dark venous blood return and flushed easily with sterile saline. All ports were capped. Antibiotic disc was placed around central line at puncture site. The central line was secured to the skin with two interrupted 2.0 silk sutures. The area was bandaged with sterile see-through central line bandage. RADIOLOGICAL DATA Ultrasound guidance was used to locate left IJ. Doppler/color flow was used to confirm venous flow. COMPLICATIONS: No apparent complications CXR-no pneumothorax ESTIMATED BLOOD LOSS: Less than 1 cc. Late entry note .this procedure was performed on 08/25/2017 in the ED. Tiarra Malone MD Aug 26, 2017 17:16
--- NOTE | 2017-08-26 19:30 | ECHRPT ---
Indication: S/P CARDIAC ARREST CONCLUSIONS Normal left ventricular size. Wall thickness is measured at the upper limits of normal. The left ventricular systolic function is low normal with an estimated ejection fraction 50%. No reg ional wall motion abnormalities are present. No valvular abnormalities are noted. BP: / HR: Rhythm: MEASUREMENTS (Male / Female) Normal Values Technical Quality: 2D ECHO LV Diastolic Diameter PLAX 4.3 cm 4.2 - 5.9 / 3.9 - 5.3 cm IVS Diastolic Thickness 1.3 cm 0.6 - 1.0 / 0.6 - 0.9 cm LVPW Diastolic Thickness 0.7 cm 0.6 - 1.0 / 0.6 - 0.9 cm LV Relative Wall Thickness 0.5 RV Internal Dim ED PLAX 1.4 cm LA Systolic Diameter LX 2.6 cm 3.0 - 4.0 / 2.7 - 3.8 cm DOPPLER Mitral E Point Velocity 72.6 cm/s Mitral A Point Velocity 64.7 cm/s Mitral E to A Ratio 1.1 TR Peak Velocity 254.0 cm/s TR Peak Gradient 25.8 mmHg FINDINGS LEFT VENTRICLE Normal left ventricular size. Wall thickness is measured at the upper limits of normal. The left ventricular systolic function is low normal with an estimated ejection fraction 50%. No reg ional wall motion abnormalities are present. RIGHT VENTRICLE Normal right ventricular size and systolic function. LEFT ATRIUM The left atrial size is normal. RIGHT ATRIUM The right atrial size is normal. ATRIAL SEPTUM Normal atrial septal thickness without atrial level shunting by limited color doppler interrogation. AORTA The aortic root and proximal ascending aorta are normal in size on limited imaging. MITRAL VALVE Structurally normal mitral valve. No mitral valve stenosis or regurgitation. AORTIC VALVE Trileaflet aortic valve. No aortic valve stenosis or regurgitation. TRICUSPID VALVE Structurally normal tricuspid valve. No tricuspid valve stenosis or regurgitation. PULMONARY VALVE The pulmonary valve is not well visualized. VESSELS The inferior vena cava is normal in size. PERICARDIUM No pericardial effusion. Aron Ventura MD (Electronically Signed) Final Date:26 August 2017 19:30
[2017-08-27] VITALS (23 sets, daily range): BP systolic 2–139; BP diastolic 2–81; PULSE 105–126; RESP 20–21; TEMP 100.4; O2SAT 93–99
[2017-08-27] MEDS: PHENYLEPHRINE INJ 80 MG in DEXTROSE 5% IN WATE 500 ML INJ 492 ML IV PRN ×10 (02:29→20:15)
[2017-08-27] MEDS: SODIUM BICARBONATE 8.4% INJ 150 MEQ in SODIUM CHLOR 0.9% 1000 ML INJ 850 ML IV SCH ×2 (03:14→14:09)
[2017-08-27] MEDS: VASOPRESSIN 40 U/D5W 100 ML Titrate IV PRN ×4 (03:14→20:15)
[2017-08-27] MEDS: SODIUM CHLOR 0.9% 1000 ML INJ 1,000 ML IV SCH ×2 (03:36→11:36)
[2017-08-27] MEDS: RESP: ALBUTEROL 2.5 MG/IPRATROPIUM 0.5 MG NEB (SCH) INH ×4 (04:13→19:49)
[2017-08-27] MEDS: CHLORHEXIDINE GLUCONATE 2 % 1 PACK (2 CLOTHS) TOP SCH (06:14)
[2017-08-27 06:17] LABS: HEMATOCRIT 41.1 % (35.0-46.0); MEAN CELL VOLUME 92.2 FL (80.0-100.0); MEAN CORPUSCULAR HEMOGLOBIN 31.4 PG (27.0-34.0); MEAN CORPUSCULAR HGB CONC 34.1 % (32.0-36.0); MEAN PLATELET VOLUME 10.7 FL (7.0-11.0); PLATELET COUNT 122 TH/MM3 (150-450); RED BLOOD COUNT 4.46 MIL/MM3 (4.00-5.30); RED CELL DISTRIBUTION WIDTH 14.4 % (11.6-17.2); WHITE BLOOD COUNT 4.9 TH/MM3 (4.0-11.0)
--- NOTE | 2017-08-27 06:25 | RADRPT ---
EXAM DATE/TIME: 08/27/2017 04:54 [facility] COMPARISON: CHEST SINGLE AP, August 25, 2017, 20:19. INDICATIONS : Respiratory failure. MEDICAL HISTORY : IV drug abuse. SURGICAL HISTORY : Tubal ligation. ENCOUNTER: Subsequent ACUITY: 1 day PAIN SCORE: Non-responsive. LOCATION: Bilateral chest FINDINGS: 2 AP views chest. Endotracheal tube, nasogastric tube, left IJ central venous catheter remain in plac e. New left lower lobe atelectasis versus consolidation. Small left pleural effusion. Right lung jocelyn r. No evidence of pneumothorax. CONCLUSION: New left lower lobe atelectasis versus consolidation. Small left pleural effusion. Neal Rodriguez MD on August 27, 2017 at 6:22 Board Certified Radiologist. This report was verified electronically.
[2017-08-27 06:51] LABS: ALBUMIN 2.1 GM/DL (3.4-5.0); BICARBONATE 23.3 MEQ/L (21.0-32.0); CALCIUM 6.8 MG/DL (8.5-10.1); CALCIUM-PROTEIN CORRECTED 7.9 MG/DL (8.5-10.1); CREATININE 1.13 MG/DL (0.50-1.00); MAGNESIUM 1.1 MG/DL (1.5-2.5); PHOSPHORUS 3.1 MG/DL (2.5-4.9); TOTAL BILIRUBIN ADULT 0.6 MG/DL (0.2-1.0)
[2017-08-27] MEDS: NOREPINEPHRINE-DEXTROSE DRIP 250 ML IV PRN ×4 (07:15→19:37)
[2017-08-27] MEDS: INSULIN ASPART SUPPLEMENTAL SCALE SQ SCH ×4 (08:00→20:15)
[2017-08-27] MEDS: FAMOTIDINE 20 MG/2 ML VIAL IV PUSH SCH ×2 (08:07→20:14)
[2017-08-27] MEDS: DOCUSATE SODIUM 50 MG/SENNA 8.6 MG TAB PO SCH ×2 (08:07→20:15)
[2017-08-27] MEDS: HEPARIN SODIUM - SQ 10,000 UNITS/ML VIAL SQ SCH (08:08)
[2017-08-27] MEDS: SODIUM CHLORIDE 0.9% FLUSH 10 ML FLUSH IV FLUSH SCH ×2 (08:08→20:14)
[2017-08-27] MEDS: ARTIFICIAL TEARS OPTH SOLN 15 ML BTL EACH EYE SCH ×3 (08:11→17:15)
[2017-08-27] MEDS: CHLORHEXIDINE 0.12% (ORAL KIT) 15 ML CUP MT SCH ×2 (08:12→20:14)
[2017-08-27 08:45] LABS: BANDS 62 % (0-6); BASOPHILS 1 % (0-2); LYMPHOCYTES 7 % (9-44); METAMYELOCYTES 3 % (0-1); MONOCYTES 7 % (0-8); NEUTROPHIL # MANUAL DIFF 4.2 TH/MM3 (1.8-7.7); POLYS (SEG NEUTROPHILS) 20 % (16-70)
--- NOTE | 2017-08-27 09:22 | HHI.HCSW ---
Nurse Aide Visit Significant Family/Friend Attempted to contact long-time friend, Miki to provide emotional support and assistance with resources for daughter Reddy. Referral given to [facility] Traumatic Loss program. Miki Renteria: [phone] or [phone] Veronica Boyce [employer], FINANCE INSURANCE MANAGER Aug 27, 2017 09:22
--- NOTE | 2017-08-27 09:44 | MG ---
cc: Manuel Mclaughlin MD NOTE: 42-year-old. No sedation, unresponsive. Hyperventilation not performed. Cardiac arrest. Low blood pressure. Heparin. FINDINGS: The recording shows an extremely low background and it is suspicious for electrocerebral silence. Photic stimulation was performed which had what looks like a photoelectric effect at the high frequencies bifrontally. No hemisphere asymmetry is noted. No epileptiform or seizure activity seen. IMPRESSION: It appears to be electrocerebral silence. Clinical correlation is needed. MD SUSANA Hobbs/GERA , 09:31 AM , 09:44 AM
--- NOTE | 2017-08-27 10:12 | EKG ---
Date Performed: 08/25/2017 Time Performed: 16:26:42 PTAGE: 42 years EKG: Sinus rhythm WITH SHORT FL INTERVAL POSSIBLE RIGHT VENTRICULAR CONDUCTION DELAY LATERAL MYOCARDIAL INFARCTION ABN ORMAL ECG NO PREVIOUS TRACING Izqki-Zauqepfiu-Udnqz syndrome with ventricular pre-excitation and pr olongation of the QT interval for the heart rate. DOCTOR: Lian Cardoso Interpretating Date/Time 08/27/2017 10:10:18
--- NOTE | 2017-08-27 10:12 | EKG ---
Date Performed: 08/26/2017 Time Performed: 03:35:14 PTAGE: 42 years EKG: Sinus rhythm . Short OR interval Septal T wave changes are nonspecific Borderline ECG PREVIOUS TRACING 08/25/17 The OR interval remains short but there is less evidence of ventricula r pre-excitation compared to the prior tracing. Nevertheless, the tracing remains consistent with an accessory pathway. The QT interval remains prolonged for the heart rate. Clinical correlation will be important to assess the electrocardiographic abnormalities. DOCTOR: Lian Cardoso Interpretating Date/Time 08/27/2017 10:12:04
--- NOTE | 2017-08-27 12:51 | HHI.CCPN ---
Subjective Remarks/Hospital Course This is a 42-year-old female ,per EMS patient apparently [facility], she has had a hard time dealing with the fact that her significant other overdose and . And the family has mentioned that she has threatened in the past to commit suicide, apparently the patient has access not only to opiates on the streets but also sees prescribed benzodiazepines such as Xanax. Per EMS/ED report the patient was found unresponsive last known seen responsive/ normal approximately 2 hours prior to discovery at approximately 1358. At that time,upon arrival to of EMS personnel the patient pupils were fixed and dilated and the patient was apneic the patient was intubated, CPR initiated with ROSC after Narcan and several rounds of epinephrine. Upon initial presentation systolic blood pressure was 80s-90's. In the ED the patient received approximately 3 L of fluid. Critical care medicine was consulted. Phenylephrine infusion had been ordered but not set up for the patient. Upon my arrival to the ED the patient was noted to have a blood pressure 53/30, Levophed infusion was ordered. Emergent central line placed, and norepinephrine , phenylephrine, and epinephrine initiated. A second dose of naloxone was given with no response. Upon evaluation, pupils were noted to be 5-6 millimeters fixed and dilated. No response to painful stimuli, no gag, cough, or corneal reflexes were noted. EEG ,CT brain pending. Per chart review past medical history significant for Dilaudid IV use, Xanax use caffeine use, half a pack per day smoking history, bipolar history, depression anxiety, tubal ligation, . Urine drug screen is pending. Subjective : 08/26: Late entry note. Patient seen at 6 AM. no acute change in neurological status overnight. Patient remains encephalopathic. CT of brain showed diffuse cerebral edema most likely anoxic injury. EEG performed this a.m., results. The patient remains hemodynamically unstable on now 3 vasopressor vacations epinephrine, Levophed, phenylephrine. Patient was noted to have low bicarb level . Sodium bicarbonate infusion and also instituted. Extensive discussion with family with palliative care patient was made DNR/alternate CODE STATUS. Family members in route to include mother from out of town. Patient noted to be on maximum doses of vasopressor, vasopressin added to medication regimen. Repeat ABG pending. Neurological evaluation performed, prognosis is very poor, with no possible meaningful neurological recovery. 08/27: The patient remains encephalopathic. The patient was still requiring 3 pressors to maintain perfusion pressure. Family arrived last night, some family members requesting cerebral blood flow study, and any and all studies for neurological function. EEG resulted yesterday electro silence. Discussed case with Dr. Hill and Dr. Abbott. Plan was initially for MRI and cerebral blood flow studies to be obtained after conversation/confirmation with healthcare proxy (patient's daughters). An extensive meeting occurred with Dr. Hill and family and this evening, the family ( 2 daughters, POA) decided for institution of comfort care measures/withdrawal tentatively at 1300 tomorrow.Hemoglobin stable patient was noted to have positive Hemoccult stool GI has been consulted the patient continues on famotidine twice daily. We will continue serial hemoglobin monitoring. Objective Vital Signs Date Time Temp Pulse Resp B/P (MAP) Pulse Ox O2 Delivery O2 Flow Rate FiO2 08/27/17 11:20 97 60 08/27/17 11:17 109 89/56 08/27/17 08:00 100.4 20 08/25/17 18:58 Ventilator Intake and Output 08/27/17 08/27/17 08/28/17 08:00 16:00 00:00 Output Total 1100 ml Balance -1100 ml Result Diagram: 08/27/17 0600 08/27/17 0600 Other Results Microbiology Date/Time Source Procedure Growth Status 08/25/17 20:10 Stool Stool Stool Occult Blood ([facility]) - Final HEMOCCULT POSITIVE Complete Laboratory Tests Test 08/26/17 13:55 08/26/17 14:49 08/26/17 17:10 08/27/17 04:30 Blood Gas Puncture Site ART LINE ART LINE ART LINE ART LINE Blood Gas Patient Temperature 98.6 98.6 98.6 98.6 Blood Gas HCO3 20 mmol/L (22-26) 19 mmol/L (22-26) 20 mmol/L (22-26) 22 mmol/L (22-26) Blood Gas Base Excess -8.9 mmol/L (-2-2) -8.4 mmol/L (-2-2) -6.9 mmol/L (-2-2) -2.3 mmol/L (-2-2) Blood Gas Oxygen Saturation 90 % (90-100) 96 % (90-100) 97 % (90-100) 96 % ( 90-100) Arterial Blood pH 7.07 (7.380-7.420) 7.13 (7.380-7.420) 7.21 (7.380-7.420) 7.38 (7.380-7.420) Arterial Blood Partial Pressure CO2 72 mmHg (38-42) 60 mmHg (38-42) 51 mmHg (38-42) 39 mmHg (38-42) Arterial Blood Partial Pressure O2 77 mmHg (61-120) 119 mmHg (61-120) 151 mmHg (61-120) 109 mmHg (61-120) Arterial Blood Oxygen Content 18.7 Vol % (12.0-20.0) 20.7 Vol % (12.0-20.0) 19.7 Vol % (12.0-20.0) 18.2 Vol % (12.0-20.0) Arterial Blood Carboxyhemoglobin 0.1 % (0-4) 0.0 % (0-4) 0.3 % (0-4) 0.5 % (0-4) Arterial Blood Methemoglobin 1.3 % (0-2) 1.3 % (0-2) 1.4 % (0-2) 1.4 % (0-2) Blood Gas Hemoglobin 14.8 G/DL (12.0-16.0) 15.2 G/DL (12.0-16.0) 14.3 G/DL (12.0-16.0) 13.3 G/DL (12.0-16.0) Oxygen Delivery Device VENTILATOR VENTILATOR VENTILATOR VENTILATOR Blood Gas Ventilator Setting PRVC/AC 550/20/5PEEP 20/550/IT1.0/5PEEP Blood Gas Inspired Oxygen 70 % 70 % 70 % 60 % Imaging Last Impressions Chest X-Ray 08/27/17 0600 Signed Impressions: Service Date/Time: Sunday, August 27, 2017 04:54 - CONCLUSION: New left lower lobe atelectasis versus consolidation. Small left pleural effusion. Neal Rodriguez MD Head CT 08/25/171843 Signed Impressions: Service Date/Time: Friday, August 25, 2017 19:34 - CONCLUSION: Diffuse cerebral edema suspicious for an anoxic event. Damien Tobar MD FACR Last Impressions Head CT 4/4/18 1844 Signed Impressions: Service Date/Time: Friday, August 25, 2017 19:34 - CONCLUSION: Diffuse cerebral edema suspicious for an anoxic event. Damien Tobar MD FACR Chest X-Ray 08/25/170 Signed Impressions: Service Date/Time: Friday, August 25, 2017 16:36 - CONCLUSION: 1. Support equipment in good position. 2. The lungs are clear. Cuate Tobar MD Last Impressions Chest X-Ray 08/25/170 Signed Impressions: Service Date/Time: Friday, August 25, 2017 16:36 - CONCLUSION: 1. Support equipment in good position. 2. The lungs are clear. Cuate Tobar MD Objective Remarks GENERAL: This is a 42-year-old well-developed well-nourished female, intubated unresponsive SKIN: Warm and dry. HEAD: Atraumatic. Normocephalic. EYES: Pupils equal and round. 5 -6 mm fixed and dilated . No corneal reflexes. no scleral icterus. No injection or drainage. ENT: No nasal bleeding or discharge. Mucous membranes pink and moist. NECK: Trachea midline. No JVD. CARDIOVASCULAR: Normal rate, regular rhythm. RESPIRATORY: Mechanical ventilation . Apneic not overbreathing the ventilator. clear to auscultation. Breath sounds equal bilaterally. GASTROINTESTINAL: Abdomen soft, non-tender, nondistended. No guarding. Hypoactive bowel sounds MUSCULOSKELETAL: Extremities without clubbing, cyanosis, or edema. No obvious deformities. NEUROLOGICAL: GCS 3T. No sedation ever received. No movement to painful stimuli. Negative cough, gag, corneal reflexes. Date of Insertion: Aug 25, 2017 A/P Problem List: (1) Suicidal intent ICD Code: R45.851 - Suicidal ideations Status: Acute (2) Cardiac arrest, cause unspecified ICD Code: I46.9 - Cardiac arrest, cause unspecified Status: Acute (3) Bipolar 1 disorder ICD Code: F31.9 - Bipolar disorder, unspecified Status: Chronic (4) Hypoglycemia ICD Code: E16.2 - Hypoglycemia, unspecified Status: Acute (5) Transaminitis ICD Code: R74.0 - Nonspecific elevation of levels of transaminase and lactic acid dehydrogenase [LDH] Status: Acute (6) JAGDISH (acute kidney injury) ICD Code: N17.9 - Acute kidney failure, unspecified Status: Acute (7) Acute hypoxemic respiratory failure ICD Code: J96.01 - Acute respiratory failure with hypoxia Status: Acute (8) Hypothermia due to non-environmental cause ICD Code: T68.XXXA - Hypothermia, initial encounter Status: Acute (9) Rhabdomyolysis ICD Code: M62.82 - Rhabdomyolysis Status: Acute Assessment and Plan Plan by systems: Neurologic: Anoxic brain injury Hypothermia Neuro checks per ICU protocol Avoid all sedatives Apply bairhugger and maintain normothermia temperature 37 Avoid acetaminophen secondary to elevated LFT's 08/25 CT brain-diffuse cerebral edema suspicious for anoxic event 08/26 EEG-results pending Neurology-Dr. Abbott-evaluation no meaningful neurological recovery anticipated Ammonia level-24 08/25 urine drug screen-positive for benzodiazepines, cocaine 08/26 Poison control following-no further recommendations at this time Flumazenil given on 08/25 no response Respiratory: Acute hypoxemic respiratory failure Tobacco use disorder Mixed acidosis Maintain O2 saturation greater than 92% Duo nebs every 6 hours schedule every 2 hours as needed Ventilator bundle Obtain ABG wean FiO2 as tolerated 08/27 FIO2 decreased 50% 08/27 chest x-ray left lower lobe consolidation Cardiovascular: Cardiogenic shock S/P cardiac arrest 08/26 echo [id number] results 08/26 EKG- QT interval no change Patient currently on norepinephrine, phenylephrine, epi and vasopressin to be initiated Maintain MAP> 65mmHg BNP WNL Monitor flowtrach- hemodynamic profile Renal: JAGDISH Rhabdomyolysis Insert Zapien and maintain Monitor creatinine kinase levels-initial 1241 Most likely secondary to hypotension -- Strict I/Os FEN/GI: Electrolyte derangement Transaminitis/shock liver secondary to hypo-perfusion Insert OGT-maintain NPO status for now-and hemodynamically unstable on 3 vasopressors Monitor BMP Creatinine improved Zofran for nausea Famotidine GI prophylaxis-hemooccult positive, Will replete electrolytes as needed 08/25 hepatitis panel- Hep C IgG antibody positive Heme/ID: Leukocytosis Monitor CBC Obtain cultures if clinically indicated Endocrine: Hypoglycemia 1 amp D50 x 1 dose now. Repeat blood glucose level Glucose monitoring per ICU protocol, low-dose regimen -- SSI Prophylaxis: GI Prophylaxis Famotidine DVT Prophylaxis -- SCDs Heparin 5000u SQ BID placed on hold Lines: Peripheral IVs x2. Left IJ central line 08/25, right radial A-line 08/26 Dispo: my billing statement This patient remains critically ill with one or more organ systems which are or may become a threat to life. I have spent in excess of 39 minutes discontinuously in the care and management of this patient. This time is exclusive of procedures, and includes, but is not limited to, evaluation of the patient, review of the medical record, discussions with family, consultants, nursing staff, or respiratory therapy, and documentation in the medical record. 08/26: Dr. Hill met with family, see note. Extensive discussion with family patient may alternate CODE STATUS.. Patient requiring escalating doses of vasopressors in order to maintain blood pressure. Patient's mother and rest of the family enroute from out of town, continue aggressive measures short of ACLS protocol to include chest compressions and defibrillation. [place] and to see family, tentative plan to meet with family this evening upon their arrival, upon request. 08/27: Dr. Hill had extensive discussion with family family currently not at bedside, family members requesting cerebral blood flow studies. Awaiting contact with healthcare proxy patient's daughters to discuss EEG revealed electrocerebral silence. Also telephoned and discussed with Dr. Abbott, possible plan for cerebral blood flow studies and MRI at family's request. Patient has severe anoxic encephalopathy, poor prognosis. EEG was electroclinical silent. At 1805-discussion with Dr. Hill, after extensive family meeting. Family requests comfort care measures/drawl to be instituted at 1300 08/28/17. Family, healthcare proxy's, Payton, requests no additional studies be performed to include CBF or MRI. All questions answered. Physician Tiarra Lieberman MD Aug 27, 2017 12:51
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
[2017-08-27 14:42] LABS: HEMATOCRIT 38.4 % (35.0-46.0); HEMOGLOBIN 13.2 GM/DL (11.6-15.3)
[2017-08-27 15:28] LABS: TROPONIN I 0.92 NG/ML (0.02-0.05)
--- NOTE | 2017-08-27 20:17 | HHI.HCPN ---
Reason for visit a. To assist with evaluation and management of symptoms including: dyspnea; encephalopathy b. To assist medical decision maker(s) with: better understanding of current medical conditions; weighing benefits/burdens of medical treatment options; making medical treatment decisions. . Subjective/Interval History No significant change overnight. Patient remains unresponsive (off sedation); intubated, mechanically ventilated in an MICU bed. No evidence of neurologic improvement. Remains dependent on multiple pressors. No pupillary, gag, corneal response noted. Formal interpretation of EEG is probable "electrocerebral silence." . Family/friend interactions When I left the evening of 08/26/17, the decision makers (daughters Lesvia and Selena) appeared to be leaning toward withdrawal of life support if patient did not ovenight. Apparently Lesvia began having doubts and was requesting further neuro tesing such as blood flow studies. The patient's long time partner -- Miki Renteria-- was also reminding all family members that the doctors had given on on him at one point, the current patient had refused, and after 3 days Mr Renteria woke up. He wants to give the patient the same 3 day window. Last night, the patient's mother and the patient's sister arrived. Daughter Selena also arrived. Multiple family discussions took place today as family members arrived and had multiple questions. * Mother and sister were at bedside when I initially arrived. I reviewed the ER and hospital course, discussed the current clinical condition, discussed the prognosis, and explained the statutes on proxy decision makers. Mother and sister felt the patient would not want to be prolonged on life support. They explained that it was Lesvia and Mr. Renteria who needed to sit down and speak with me once again. There were to arrive later in the day . I gave family my phone number and asked them to call when all family was here. * Family arrived, but before I arrived on the unit, Lesvia had what appeared to be a panic attack and went to the ED. Daughter Selena remained on the floor. She wanted to speak with me and we met privately. I reviewed the ER and hospital course, discussed the current clinical condition, discussed the prognosis, and explained the statutes on proxy decision makers. Danay felt the patient would not want to be prolonged on life support. Selena did NOT want additional neurological testing. She wanted me to speak with her sister. I said I did not want to speak with Lesvia while she was in the ED unless Lesvia specifically requested the meeting. * When I returned to the room, Mr. Renteria asked me to speak privately to 14 y/ o Reddy -- the patient's 3rd daughter. I spoke with Reddy for about 20 minutes. Reddy had discovered her mother. Reddy is a very mature 14 y/o had very good questions. She is certainly having a difficult time, but amazingly said, "My mother was really depressed. She needed to use a lot of drugs. She had trouble all of her life with bipolar. I think if she she would be peaceful at last." * Then , Mr. Renteria wanted to speak privately to reiterate how important it was to allow the patient to have 3 days just as she had given to him and allowed his miracle to happen. We once again discussed his case vs the current case and I reiterated that the decision would be up to Lesvia and Selena and all decisions should be based on what everyone felt the patient would want under the circumstances. * On returning Mr Renteria to the patient's room, I was told that Lesvia had contacted family from the ER and asked that I come down to visit her there. I was accompanied by her sister Selena. Lesvia was able to converse . Her heart rate and blood pressure were now normal. Both sisters agreed that the patient would not want to be prolonged on life support under the circumstances. Neither of them wanted additional neurological testing. Both, would have preferred to go forward with withdrawal today, but they wanted to allow Mr. Renteria some peace by allowing a little more time. The compromise was to plan on withdrawal sometime on 08/28/17. * I returned to the room. Mr Renteria seemed content with the plan. I provided anticipatory guidance to family on the process of vent withdrawal. Offered roll up guider operator services which were accepted for 08/28/17. Family agreed to notify nursing staff when they agreed upon an approximate time of withdrawal. I spoke to Dr. Malone and the bedside nurse regarding the agreed plan. . Advance Directives Living Will: Never completed Health Care Surrogate: Never completed Durable Power of Air Sampling And Monitoring: Never completed Advance Directive Specifics Date completed: As far as we know there have never been advanced directives completed. . Health Care Surrogate(s): No written designation of healthcare surrogate. . Documented care wishes: No written documentation of healthcare goals and preferences. . Objective Vital Signs Date Time Temp Pulse Resp B/P (MAP) Pulse Ox O2 Delivery O2 Flow Rate FiO2 08/27/17 19:37 109 124/68 08/27/17 18:00 110 08/27/17 16:41 114 114/74 08/27/17 16:19 94 80 08/27/17 16:00 80 08/27/17 16:00 99.7 115 20 106/62 (77) 93 108/66 (80) 08/27/17 16:00 115 08/27/17 15:25 111 93/56 08/27/17 14:00 105 08/27/17 12:30 109 112/78 08/27/17 12:00 110 08/27/17 12:00 99.1 110 20 123/72 (89) 97 118/76 (90) 08/27/17 12:00 50 08/27/17 11:20 97 60 08/27/17 11:17 109 89/56 08/27/17 10:00 112 08/27/17 08:00 60 08/27/17 08:00 117 08/27/17 08:00 100.4 117 20 108/55 (72) 97 92/58 (69) 08/27/17 07:35 97 60 08/27/17 07:16 118 90/56 08/27/17 07:15 119 92/57 08/27/17 07:00 117 08/27/17 06:00 119 08/27/17 06:00 100.8 119 20 88/52 (64) 98 81/53 (62) 08/27/17 05:30 120 92/59 08/27/17 05:00 100.8 120 21 109/50 (69) 98 82/54 (63) 08/27/17 05:00 120 08/27/17 05:00 120 82/54 08/27/17 05:00 120 82/54 08/27/17 05:00 120 82/54 08/27/17 04:15 119 98/69 08/27/17 04:13 98 60 08/27/17 04:00 118 08/27/17 04:00 60 08/27/17 04:00 100.2 118 20 110/59 (76) 99 98/69 (79) 08/27/17 04:00 118 98/69 08/27/17 03:14 118 107/74 08/27/17 03:14 118 99/73 08/27/17 03:00 100.0 118 20 112/60 (77) 99 99/73 (82) 08/27/17 03:00 118 08/27/17 03:00 118 112/60 08/27/17 02:30 119 100/74 08/27/17 02:29 119 101/74 08/27/17 02:29 119 103/75 08/27/17 02:00 120 08/27/17 02:00 120 118/68 08/27/17 02:00 100.2 120 20 118/68 (85) 99 104/77 (86) 08/27/17 01:00 123 08/27/17 01:00 100.4 123 20 125/74 (91) 99 2/2 (2) 08/27/17 00:30 126 123/70 08/27/17 00:00 100.8 126 20 123/55 (77) 96 105/75 (85) 08/27/17 00:00 60 08/27/17 00:00 126 08/27/17 00:00 97 60 08/26/17 23:30 128 08/26/17 23:30 100.9 128 20 116/56 (76) 96 89/60 (70) 08/26/17 23:00 129 08/26/17 23:00 101.1 129 20 116/57 (76) 96 90/62 (71) 08/26/17 22:00 130 08/26/17 22:00 101.3 130 20 116/77 (90) 99 103/74 (84) 08/26/17 21:56 130 103/79 08/26/17 21:00 132 08/26/17 21:00 101.5 132 20 134/101 (112) 99 124/87 (99) 08/26/17 21:00 132 118/83 08/26/17 20:01 101.1 132 20 137/106 (116) 99 121/86 (98) 08/26/17 20:01 132 08/26/17 20:00 60 08/26/17 20:00 132 123/88 08/26/17 19:59 98 60 08/26/17 19:45 130 130/91 . Physical Exam CONSTITUTIONAL/GENERAL: This is an adequately nourished patient, unresponsive ( off all sedation); intubated; mechanically ventilated in an MICU bed. TUBES/LINES/DRAINS: Left internal jugular central line; peripheral IVs; Zapien catheter; orotracheal tube; orogastric tube; soft wrist restraints; warming blanket; fecal collection system SKIN: No jaundice, rashes. Multiple tattoos. There is a circumferential abrasion around the neck with very small blisters. HEAD: Atraumatic. Normocephalic. EYES: Pupils fixed and dilated. No extraocular motions. No corneal reflex. No scleral icterus. No injection or drainage. Fundi not examined. ENT: Cannot evaluate hearing. Nose without bleeding or purulent drainage. Throat without visible erythema, exudates, masses, or lesions but challenging to evaluate with intubations. NECK: Circumferential abrasion as noted above. Trachea midline. CARDIOVASCULAR: Regular rate and rhythm without murmurs, gallops, or rubs. No JVD. RESPIRATORY/CHEST: Symmetric respirations on mechanical ventilation. Clear to auscultation. Breath sounds equal bilaterally. No wheezes, rales, or rhonchi. GASTROINTESTINAL: Abdomen soft, non-tender, nondistended. No hepato-splenomegaly , or palpable masses. No guarding. Bowel sounds hypoactive. GENITOURINARY: Without palpable bladder distension. Zapien catheter in place. MUSCULOSKELETAL: Extremities without clubbing, cyanosis, or edema. No mottling. LYMPHATICS: Not examined NEUROLOGICAL: Unresponsive. Pupils fixed and dilated. No corneal reflex. Does not withdraw to noxious stimuli. No spontaneous movement seen. PSYCHIATRIC: Unable to evaluate due to level of responsiveness. . Diagnostic Tests Laboratory Laboratory Tests Test 08/25/17 16:33 08/25/17 19:16 08/25/17 20:10 08/25/17 21:00 White Blood Count 11.9 TH/MM3 (4.0-11.0) Red Blood Count 4.50 MIL/MM3 (4.00-5.30) Hemoglobin 14.3 GM/DL (11.6-15.3) Hematocrit 43.5 % (35.0-46.0) Mean Corpuscular Volume 96.8 FL (80.0-100.0) Mean Corpuscular Hemoglobin 31.8 PG (27.0-34.0) Mean Corpuscular Hemoglobin Concent 32.8 % (32.0-36.0) Red Cell Distribution Width 14.2 % (11.6-17.2) Platelet Count 181 TH/MM3 (150-450) Mean Platelet Volume 10.5 FL (7.0-11.0) Neutrophils (%) (Auto) 79.1 % (16.0-70.0) Lymphocytes (%) (Auto) 11.1 % (9.0-44.0) Monocytes (%) (Auto) 9.3 % (0.0-8.0) Eosinophils (%) (Auto) 0.1 % (0.0-4.0) Basophils (%) (Auto) 0.4 % (0.0-2.0) Neutrophils # (Auto) 9.4 TH/MM3 (1.8-7.7) Lymphocytes # (Auto) 1.3 TH/MM3 (1.0-4.8) Monocytes # (Auto) 1.1 TH/MM3 (0-0.9) Eosinophils # (Auto) 0.0 TH/MM3 (0-0.4) Basophils # (Auto) 0.1 TH/MM3 (0-0.2) CBC Comment DIFF FINAL Differential Comment Prothrombin Time 11.2 SEC (9.8-11.6) Prothromb Time International Ratio 1.1 RATIO Activated Partial Thromboplast Time 27.8 SEC (24.3-30.1) Blood Urea Nitrogen 21 MG/DL (7-18) Creatinine 2.24 MG/DL (0.50-1.00) Random Glucose 64 MG/DL (74-106) Total Protein 7.6 GM/DL (6.4-8.2) Albumin 3.5 GM/DL (3.4-5.0) Calcium Level 8.6 MG/DL (8.5-10.1) Alkaline Phosphatase 194 U/L (45-117) Aspartate Amino Transf (AST/SGOT) 1358 U/L (15-37) Alanine Aminotransferase (ALT/SGPT) 867 U/L (10-53) Total Bilirubin 0.5 MG/DL (0.2-1.0) Sodium Level 141 MEQ/L (136-145) Potassium Level 4.7 MEQ/L (3.5-5.1) Chloride Level 105 MEQ/L (98-107) Carbon Dioxide Level 15.9 MEQ/L (21.0-32.0) Anion Gap 20 MEQ/L (5-15) Estimat Glomerular Filtration Rate 24 ML/MIN (>89) Total Creatine Kinase 1241 U/L (26-192) Creatine Kinase MB 25.5 NG/ML (0.5-3.6) Creatine Kinase MB % 2.1 % (0.0-4.0) Troponin I 0.26 NG/ML (0.02-0.05) B-Type Natriuretic Peptide 19 PG/ML (0-100) Lipase 198 U/L (73-393) Thyroid Stimulating Hormone 3rd Gen 3.560 uIU/ML (0.358-3.740) Salicylates Level 3.0 MG/DL (2.8-20.0) Acetaminophen Level LESS THAN 2.0 MCG/ML Ethyl Alcohol Level LESS THAN 3 MG/DL (0-5) Urine Color YELLOW (YELLW/STRAW) Urine Turbidity CLEAR (CLEAR) Urine pH 6.0 (5.0-8.5) Urine Specific [place] 1.009 (1.002-1.035) Urine Protein 30 mg/dL (NEG-TRACE) Urine Glucose (UA) NEG mg/dL (NEG) Urine Ketones NEG mg/dL (NEG) Urine Occult Blood MOD (NEG) Urine Nitrite NEG (NEG) Urine Bilirubin NEG (NEG) Urine Urobilinogen LESS THAN 2.0 MG/DL (LESS Urine Leukocyte Esterase NEG (NEG) Urine RBC 1 /hpf (0-3) Urine WBC 4 /hpf (0-5) Urine Squamous Epithelial Cells <1 /hpf (0-5) Urine Bacteria RARE /hpf (NONE) Urine Mucus FEW /lpf (OCC) Microscopic Urinalysis Comment CULT NOT INDICATED Urine Osmolality 286 MOSM/KG (300-1300) Urine Opiates Screen NEG (NEG) NEG (NEG) Urine Barbiturates Screen NEG (NEG) NEG (NEG) Urine Amphetamines Screen NEG (NEG) NEG (NEG) Urine Benzodiazepines Screen POS (NEG) POS (NEG) Urine Cocaine Screen POS (NEG) POS (NEG) Urine Cannabinoids Screen NEG (NEG) NEG (NEG) Stool C. difficile Toxin (PCR) NEGATIVE (NEGATIVE) Stl C. difficile Toxin Epiderm 027 PRESUMPTIVE NEGATIVE Blood Gas Puncture Site RT RADIAL Blood Gas Patient Temperature 98.6 Blood Gas HCO3 16 mmol/L (22-26) Blood Gas Base Excess -8.7 mmol/L (-2-2) Blood Gas Oxygen Saturation 97 % (90-100) Arterial Blood pH 7.31 (7.380-7.420) Arterial Blood Partial Pressure CO2 34 mmHg (38-42) Arterial Blood Partial Pressure O2 149 mmHg (61-120) Arterial Blood Oxygen Content 19.9 Vol % (12.0-20.0) Arterial Blood Carboxyhemoglobin 0.7 % (0-4) Arterial Blood Methemoglobin 1.2 % (0-2) Blood Gas Hemoglobin 14.4 G/DL (12.0-16.0) Oxygen Delivery Device VENTILATOR Blood Gas Ventilator Setting PVRC/ AC Blood Gas Inspired Oxygen 50 % Lactic Acid Level 3.6 mmol/L (0.4-2.0) Phosphorus Level 4.6 MG/DL (2.5-4.9) Ammonia 24 MCMOL/L (11-32) Random Cortisol 7.9 MCG/DL Hepatitis A IgM Antibody NONREACTIVE (NONREACTIVE) Hepatitis B Surface Antigen NONREACTIVE (NONREACTIVE) Hepatitis B Core IgM Antibody NONREACTIVE (NONREACTIVE) Hepatitis C IgG Antibody REACTIVE (NONREACTIVE) Test 08/25/17 23:00 08/26/17 00:15 08/26/17 02:15 08/26/17 05:25 Nasal Screen MRSA (PCR) MRSA NOT DETECTED (NOT Lactic Acid Level 3.4 mmol/L (0.4-2.0) 2.0 mmol/L (0.4-2.0) Total Bilirubin 0.8 MG/DL (0.2-1.0) 0.9 MG/DL (0.2-1.0) Direct Bilirubin 0.4 MG/DL (0.0-0.2) Indirect Bilirubin 0.4 MG/DL (0.0-0.8) Aspartate Amino Transf (AST/SGOT) 1617 U/L (15-37) 1496 U/L (15-37) Alanine Aminotransferase (ALT/SGPT) 818 U/L (10-53) 776 U/L (10-53) Alkaline Phosphatase 140 U/L (45-117) 142 U/L (45-117) Total Protein 5.8 GM/DL (6.4-8.2) 5.6 GM/DL (6.4-8.2) Albumin 2.7 GM/DL (3.4-5.0) 2.7 GM/DL (3.4-5.0) Acetaminophen Level LESS THAN 2.0 MCG/ML White Blood Count 2.4 TH/MM3 (4.0-11.0) Red Blood Count 4.62 MIL/MM3 (4.00-5.30) Hemoglobin 14.5 GM/DL (11.6-15.3) Hematocrit 43.2 % (35.0-46.0) Mean Corpuscular Volume 93.4 FL (80.0-100.0) Mean Corpuscular Hemoglobin 31.3 PG (27.0-34.0) Mean Corpuscular Hemoglobin Concent 33.5 % (32.0-36.0) Red Cell Distribution Width 14.5 % (11.6-17.2) Platelet Count 136 TH/MM3 (150-450) Mean Platelet Volume 9.2 FL (7.0-11.0) Neutrophils (%) (Auto) 81.3 % (16.0-70.0) Lymphocytes (%) (Auto) 11.4 % (9.0-44.0) Monocytes (%) (Auto) 6.0 % (0.0-8.0) Eosinophils (%) (Auto) 1.0 % (0.0-4.0) Basophils (%) (Auto) 0.3 % (0.0-2.0) Neutrophils # (Auto) 2.0 TH/MM3 (1.8-7.7) Lymphocytes # (Auto) 0.3 TH/MM3 (1.0-4.8) Monocytes # (Auto) 0.1 TH/MM3 (0-0.9) Eosinophils # (Auto) 0.0 TH/MM3 (0-0.4) Basophils # (Auto) 0.0 TH/MM3 (0-0.2) CBC Comment DIFF FINAL Differential Comment Prothrombin Time 12.3 SEC (9.8-11.6) Prothromb Time International Ratio 1.2 RATIO Blood Urea Nitrogen 21 MG/DL (7-18) Creatinine 1.53 MG/DL (0.50-1.00) Random Glucose 130 MG/DL (74-106) Calcium Level 7.1 MG/DL (8.5-10.1) Phosphorus Level 3.8 MG/DL (2.5-4.9) Magnesium Level 1.8 MG/DL (1.5-2.5) Sodium Level 144 MEQ/L (136-145) Potassium Level 2.8 MEQ/L (3.5-5.1) Chloride Level 115 MEQ/L (98-107) Carbon Dioxide Level 19.4 MEQ/L (21.0-32.0) Anion Gap 10 MEQ/L (5-15) Estimat Glomerular Filtration Rate 38 ML/MIN (>89) Protein Corrected Calcium 7.9 MG/DL (8.5-10.1) Test 08/26/17 13:55 08/26/17 14:49 08/26/17 15:00 08/26/17 16:06 Blood Gas Puncture Site ART LINE ART LINE Blood Gas Patient Temperature 98.6 98.6 Blood Gas HCO3 20 mmol/L (22-26) 19 mmol/L (22-26) Blood Gas Base Excess -8.9 mmol/L (-2-2) -8.4 mmol/L (-2-2) Blood Gas Oxygen Saturation 90 % (90-100) 96 % (90-100) Arterial Blood pH 7.07 (7.380-7.420) 7.13 (7.380-7.420) Arterial Blood Partial Pressure CO2 72 mmHg (38-42) 60 mmHg (38-42) Arterial Blood Partial Pressure O2 77 mmHg (61-120) 119 mmHg (61-120) Arterial Blood Oxygen Content 18.7 Vol % (12.0-20.0) 20.7 Vol % (12.0-20.0) Arterial Blood Carboxyhemoglobin 0.1 % (0-4) 0.0 % (0-4) Arterial Blood Methemoglobin 1.3 % (0-2) 1.3 % (0-2) Blood Gas Hemoglobin 14.8 G/DL (12.0-16.0) 15.2 G/DL (12.0-16.0) Oxygen Delivery Device VENTILATOR VENTILATOR Blood Gas Ventilator Setting PRVC/AC 550/20/5PEEP Blood Gas Inspired Oxygen 70 % 70 % Potassium Level 3.2 MEQ/L (3.5-5.1) Lactic Acid Level 2.8 mmol/L (0.4-2.0) Test 08/26/17 17:10 08/27/17 02:00 08/27/17 04:30 08/27/17 06:00 Blood Gas Puncture Site ART LINE ART LINE Blood Gas Patient Temperature 98.6 98.6 Blood Gas HCO3 20 mmol/L (22-26) 22 mmol/L (22-26) Blood Gas Base Excess -6.9 mmol/L (-2-2) -2.3 mmol/L (-2-2) Blood Gas Oxygen Saturation 97 % (90-100) 96 % (90-100) Arterial Blood pH 7.21 (7.380-7.420) 7.38 (7.380-7.420) Arterial Blood Partial Pressure CO2 51 mmHg (38-42) 39 mmHg (38-42) Arterial Blood Partial Pressure O2 151 mmHg (61-120) 109 mmHg (61-120) Arterial Blood Oxygen Content 19.7 Vol % (12.0-20.0) 18.2 Vol % (12.0-20.0) Arterial Blood Carboxyhemoglobin 0.3 % (0-4) 0.5 % (0-4) Arterial Blood Methemoglobin 1.4 % (0-2) 1.4 % (0-2) Blood Gas Hemoglobin 14.3 G/DL (12.0-16.0) 13.3 G/DL (12.0-16.0) Oxygen Delivery Device VENTILATOR VENTILATOR Blood Gas Ventilator Setting 20/550/IT1.0/5PEEP Blood Gas Inspired Oxygen 70 % 60 % Potassium Level 3.9 MEQ/L (3.5-5.1) 3.6 MEQ/L (3.5-5.1) White Blood Count 4.9 TH/MM3 (4.0-11.0) Red Blood Count 4.46 MIL/MM3 (4.00-5.30) Hemoglobin 14.0 GM/DL (11.6-15.3) Hematocrit 41.1 % (35.0-46.0) Mean Corpuscular Volume 92.2 FL (80.0-100.0) Mean Corpuscular Hemoglobin 31.4 PG (27.0-34.0) Mean Corpuscular Hemoglobin Concent 34.1 % (32.0-36.0) Red Cell Distribution Width 14.4 % (11.6-17.2) Platelet Count 122 TH/MM3 (150-450) Mean Platelet Volume 10.7 FL (7.0-11.0) CBC Comment AUTO DIFF Differential Total Cells Counted 100 Neutrophils % (Manual) 20 % (16-70) Band Neutrophils % 62 % (0-6) Lymphocytes % 7 % (9-44) Monocytes % 7 % (0-8) Basophils % 1 % (0-2) Neutrophils # (Manual) 4.2 TH/MM3 (1.8-7.7) Metamyelocytes 3 % (0-1) Differential Comment FINAL DIFF MANUAL Platelet Estimate LOW (NORMAL) Platelet Morphology Comment NORMAL (NORMAL) Red Cell Morphology Comment NORMAL (NORMAL) Blood Urea Nitrogen 20 MG/DL (7-18) Creatinine 1.13 MG/DL (0.50-1.00) Random Glucose 141 MG/DL (74-106) Total Protein 5.0 GM/DL (6.4-8.2) Albumin 2.1 GM/DL (3.4-5.0) Calcium Level 6.8 MG/DL (8.5-10.1) Phosphorus Level 3.1 MG/DL (2.5-4.9) Magnesium Level 1.1 MG/DL (1.5-2.5) Alkaline Phosphatase 91 U/L (45-117) Aspartate Amino Transf (AST/SGOT) 441 U/L (15-37) Alanine Aminotransferase (ALT/SGPT) 483 U/L (10-53) Total Bilirubin 0.6 MG/DL (0.2-1.0) Sodium Level 139 MEQ/L (136-145) Chloride Level 106 MEQ/L (98-107) Carbon Dioxide Level 23.3 MEQ/L (21.0-32.0) Anion Gap 10 MEQ/L (5-15) Estimat Glomerular Filtration Rate 53 ML/MIN (>89) Protein Corrected Calcium 7.9 MG/DL (8.5-10.1) Test 08/27/17 14:12 08/27/17 17:09 08/27/17 18:56 Hemoglobin 13.2 GM/DL (11.6-15.3) Hematocrit 38.4 % (35.0-46.0) Total Creatine Kinase 1069 U/L (26-192) Creatine Kinase MB 21.3 NG/ML (0.5-3.6) Creatine Kinase MB % 2.0 % (0.0-4.0) Troponin I 0.92 NG/ML (0.02-0.05) Blood Gas Puncture Site ART LINE Blood Gas Patient Temperature 98.6 Blood Gas HCO3 27 mmol/L (22-26) Blood Gas Base Excess 2.5 mmol/L (-2-2) Blood Gas Oxygen Saturation 96 % (90-100) Arterial Blood pH 7.38 (7.380-7.420) Arterial Blood Partial Pressure CO2 48 mmHg (38-42) Arterial Blood Partial Pressure O2 124 mmHg (61-120) Arterial Blood Oxygen Content 17.2 Vol % (12.0-20.0) Arterial Blood Carboxyhemoglobin 0.6 % (0-4) Arterial Blood Methemoglobin 1.5 % (0-2) Blood Gas Hemoglobin 12.5 G/DL (12.0-16.0) Oxygen Delivery Device VENTILATOR Blood Gas Ventilator Setting PRVC/AC Blood Gas Inspired Oxygen 80 % . Result Diagram: 08/27/17 1412 08/27/17599 Microbiology Microbiology Date/Time Source Procedure Growth Status 08/25/17 20:10 Stool Stool Stool Occult Blood ([facility]) - Final HEMOCCULT POSITIVE Complete . Imaging Last Impressions Chest X-Ray 08/27/17599 Signed Impressions: Service Date/Time: Sunday, August 27, 2017 04:54 - CONCLUSION: New left lower lobe atelectasis versus consolidation. Small left pleural effusion. Neal Rodriguez MD Head CT 08/25/17 1844 Signed Impressions: Service Date/Time: Friday, August 25, 2017 19:34 - CONCLUSION: Diffuse cerebral edema suspicious for an anoxic event. Damien Tobar MD FACR . Procedures Intubation/mechanical ventilation Left internal jugular central line placement . Assessment and Plan Disease Oriented Problem List: (1) Cardiac arrest, cause unspecified (2) Anoxic encephalopathy (3) Acute hypoxemic respiratory failure (4) GI bleed (5) Polysubstance abuse (6) Shock liver (7) JAGDISH (acute kidney injury) (8) Rhabdomyolysis (9) Hypothermia due to non-environmental cause (10) Bipolar 1 disorder Symptom Scale: (1) Pain 0-10 Scale: Unable to quantify (2) Dyspnea 0-10 Scale: Unable to quantify (3) Encephalopathy 0-10 Scale: Unable to quantify Pertinent Non-Medical Issues Psychosocial: Long history of disability secondary to bipolar disorder. Long history of polysubstance abuse. Psychosocial support comes mostly from her 3 daughters who live in the area and close friend Miki Renteria. Patient is reportedly legally to Jonel Madrigal. Spiritual: Hoahaoism and spirituality have not played an important role in her life. Has self identified as Religion. Legal: No known advanced directives. Her legal has indicated he does not want to be involved in healthcare decision making. Ethical issues impacting care: Patient is incapacitated and there is no reasonable probability that she will regain capacity to make her own healthcare decisions. . Important Contacts Lesvia Madrigal (daughter and co-proxy) [phone] Selena Johnson (daughter and co-proxy) NO PHONE Ethan Tamez (mother) [phone] . Prognosis Patient has suffered a severe hypoxic brain injury. Neurologic exam shows severe deficits including fixed dilated pupils, lack of gag, lack of corneal reflexes. Head CT shows significant cerebral edema. EEG read as probable electrocerebral silence. Patient is requiring 3 pressors to maintain blood pressure. Patient may be brain at this time. If not progression to brain is highly likely. There is essentially no reasonable probability of meaningful recovery. . Code Status: Alternative Code (No chest compressions; no shock.) Plan == Code Status: Alternate code. --No chest compressions; no shock == Medical decision making: Patient is currently incapacitated. There is no reasonable probability that she will recover capacity to make her own healthcare decisions. The patient, reportedly, is still legally to Jonel Madrigal. I have personally spoken to Mr. Madrigal on 08/26/2017 ) and he confirms that he has not really been involved in the patient's life for over 15 years and does not want to participate in healthcare decision making. Proxy healthcare decision making therefore falls to the patient's 2 adult daughters -- Lesvia and Selena ==Goals of medical treatment: I have personally spoken to both adult daughters who are the healthcare proxy's. Daughters accept prognosis and are planning to withdraw life support on 08/28/17. == Symptoms * Pain: patient's old records indicate she may have suffered from chronic pain particularly in the back. Current sources of pain might include prolonged bedbound status; orotracheal and orogastric intubations; vascular access line; Zapien catheter; wrist restraints. Given current neurologic exam, it is uncertain to what extent patient is able to perceive pain. No recommendations for pain management at this time. Would want to avoid any sedating medications to closely observe neurologic status. * Dyspnea: Dyspnea is currently being managed by mechanical ventilation. Would recommend against any sedating medications at this time so as not to interfere with neurologic exam. * Encephalopathy: This is likely from the patient's anoxic injury. Given that she has been given Narcan and multiple doses of flumazenil, it is unlikely that encephalopathy is due to a lingering drug effects. == See above regarding multiple family meetings that occurred today == Overall PLAN: * Health care proxy's have agreed not to proceed with any additional neurological testing. * Proxies agree that patient would not want to be prolonged on life support. * To appease Mr Renteria, they will allow patient to remain on support overnight with plan on withdrawing life support and allowing peaceful on 08/28/17. * They understand patient may have a cardiac prior to that and are accepting. NO SHOCK; NO CHEST COMPRESSIONS * Family will notify nursing staff of approximate time they would like withdrawal to take place. * Family has requested roll up guider operator to be present prior to withdrawal. * I have personally signed Exhibit certifiying that the patient has a terminal condition. * Certification of terminal illness exhibit still needs signature of attending. * Exhibit permitting withholding/withdrawal of life support needs signatures of both daughters -- Lesvia and Selena. * I have provided referral information on local childrens' grief services to assist Mr Renteria with the patient's daughter -- Reddy. * Family has expressed interest in cremation and will be looking at options. I have referred them to the nursing staff if they need a list of cremation providers. == Should family reconsider and decide to allow more days on life support, recommend that patient be evaluated for brain . I have told multiple family members that should brain be determined, there are no decisions to be made. The patient will be legally at the time of the determination and all machines will be turned off. == The nature of the family discussions and the agreed upon plan were, in turn , discussed with Dr. Malone and the bedside nurse. == Palliative care will continue to follow to assist with symptom management and to further clarify goals of medical treatment as the clinical course evolves. . Time Spent Total Floor Time (mins): 130 (Total floor time included chart review; patient exam; above referenced family meetings; discussion of case with glue maker and bedside nurse; documentation. ) Face to Face Time (mins): 30 >50% Counseling/Coord of Care: Yes Attestation To help prompt me to consider important information that might be impacting today's encounter and assessment, information from prior notes written by myself or my colleagues may have been "brought forward" into today's note. My signature on this note, however, is an attestation that I personally performed the exam, history, and/or decision-making noted today, and, unless otherwise indicated, the interactions with patient, family, and staff as well as the review of records all occurred today. I also attest that the listed assessment and stated plan reflect my best clinical judgment today based on the combination of historical information, prior notes, and today's exam/ interactions. When time spent is documented, it refers only to time spent today by the signer, or if indicated, combined time spent today by collaborating physician/nurse practitioner. . Arley Hill MD Aug 27, 2017 20:17
[2017-08-27 23:59] LABS: HEMATOCRIT 35.3 % (35.0-46.0); HEMOGLOBIN 12.2 GM/DL (11.6-15.3)
[2017-08-28] VITALS (18 sets, daily range): BP systolic 104–151; BP diastolic 55–90; PULSE 100–116; RESP 20; O2SAT 98–100
[2017-08-28] MEDS: NOREPINEPHRINE-DEXTROSE DRIP 250 ML IV PRN (00:27)
[2017-08-28] MEDS: SODIUM BICARBONATE 8.4% INJ 150 MEQ in SODIUM CHLOR 0.9% 1000 ML INJ 850 ML IV SCH ×2 (00:52→16:42)
[2017-08-28] MEDS: PHENYLEPHRINE INJ 80 MG in DEXTROSE 5% IN WATE 500 ML INJ 492 ML IV PRN ×6 (00:52→12:36)
[2017-08-28] MEDS: RESP: ALBUTEROL 2.5 MG/IPRATROPIUM 0.5 MG NEB (SCH) INH ×3 (03:27→16:19)
[2017-08-28 05:07] LABS: HEMATOCRIT 33.2 % (35.0-46.0); HEMOGLOBIN 11.6 GM/DL (11.6-15.3); MEAN CELL VOLUME 90.7 FL (80.0-100.0); MEAN CORPUSCULAR HEMOGLOBIN 31.7 PG (27.0-34.0); MEAN CORPUSCULAR HGB CONC 34.9 % (32.0-36.0); MEAN PLATELET VOLUME 10.6 FL (7.0-11.0); PLATELET COUNT 93 TH/MM3 (150-450); RED BLOOD COUNT 3.67 MIL/MM3 (4.00-5.30); RED CELL DISTRIBUTION WIDTH 14.6 % (11.6-17.2); WHITE BLOOD COUNT 9.2 TH/MM3 (4.0-11.0)
[2017-08-28] MEDS: CHLORHEXIDINE GLUCONATE 2 % 1 PACK (2 CLOTHS) TOP SCH (05:22)
[2017-08-28 05:28] LABS: ALBUMIN 1.7 GM/DL (3.4-5.0); BICARBONATE 27.7 MEQ/L (21.0-32.0); CREATININE 1.04 MG/DL (0.50-1.00); INTERNATIONAL NORMALIZED RATIO 1.1 RATIO; MAGNESIUM 1.9 MG/DL (1.5-2.5); PROTHROMBIN TIME - PATIENT 11.4 SEC (9.8-11.6)
[2017-08-28 05:42] LABS: CALCIUM-PROTEIN CORRECTED 8.4 MG/DL (8.5-10.1); PHOSPHORUS 1.6 MG/DL (2.5-4.9); TOTAL BILIRUBIN ADULT 0.8 MG/DL (0.2-1.0); TOTAL PROTEIN 4.6 GM/DL (6.4-8.2)
[2017-08-28] MEDS ORDERED: POTASSIUM CHLOR 40 MEQ PREMIX 100 ML IV ONE (06:15)
--- NOTE | 2017-08-28 06:49 | RADRPT ---
EXAM DATE/TIME: 08/28/2017 05:25 [facility] COMPARISON: CHEST SINGLE AP, August 27, 2017, 4:54. INDICATIONS : Shortness of breath, possible pulmonary disease. MEDICAL HISTORY : IV drug use WI SURGICAL HISTORY : Tubal ligation. ENCOUNTER: Subsequent ACUITY: 2 days PAIN SCORE: Non-responsive. LOCATION: Bilateral chest FINDINGS: Single AP view of the chest. Endotracheal tube, nasogastric tube, and left IJ central venous catheter remain in place. Persistent left lower lobe consolidation versus atelectasis and small left pleural effusion. No significant interval change. CONCLUSION: No significant interval change with persistent left lower lobe consolidation versus atelectasis and s mall left pleural effusion. Neal Rodriguez MD on August 28, 2017 at 6:46 Board Certified Radiologist. This report was verified electronically.
[2017-08-28] MEDS: INSULIN ASPART SUPPLEMENTAL SCALE SQ SCH ×2 (08:00→12:00)
[2017-08-28] MEDS: ARTIFICIAL TEARS OPTH SOLN 15 ML BTL EACH EYE SCH ×2 (08:35→12:37)
[2017-08-28] MEDS: SODIUM CHLORIDE 0.9% FLUSH 10 ML FLUSH IV FLUSH SCH (08:36)
[2017-08-28] MEDS: CHLORHEXIDINE 0.12% (ORAL KIT) 15 ML CUP MT SCH (08:36)
[2017-08-28] MEDS: FAMOTIDINE 20 MG/2 ML VIAL IV PUSH SCH (08:37)
[2017-08-28] MEDS: DOCUSATE SODIUM 50 MG/SENNA 8.6 MG TAB PO SCH (08:37)
[2017-08-28] MEDS: VASOPRESSIN 40 U/D5W 100 ML Titrate IV PRN ×2 (13:23)
--- NOTE | 2017-08-28 14:04 | HHI.CCPN ---
Subjective Remarks/Hospital Course This is a 42-year-old female ,per EMS patient apparently just released from [facility] yesterday, she has had a hard time dealing with the fact that her significant other overdose and . And the family has mentioned that she has threatened in the past to commit suicide, apparently the patient has access not only to opiates on the streets but also sees prescribed benzodiazepines such as Xanax. Per EMS/ED report the patient was found unresponsive last known seen responsive/ normal approximately 2 hours prior to discovery at approximately 1358. At that time,upon arrival to of EMS personnel the patient pupils were fixed and dilated and the patient was apneic the patient was intubated, CPR initiated with ROSC after Narcan and several rounds of epinephrine. Upon initial presentation systolic blood pressure was 80s-90's. In the ED the patient received approximately 3 L of fluid. Critical care medicine was consulted. Phenylephrine infusion had been ordered but not set up for the patient. Upon my arrival to the ED the patient was noted to have a blood pressure 53/30, Levophed infusion was ordered. Emergent central line placed, and norepinephrine , phenylephrine, and epinephrine initiated. A second dose of naloxone was given with no response. Upon evaluation, pupils were noted to be 5-6 millimeters fixed and dilated. No response to painful stimuli, no gag, cough, or corneal reflexes were noted. EEG ,CT brain pending. Per chart review past medical history significant for Dilaudid IV use, Xanax use caffeine use, half a pack per day smoking history, bipolar history, depression anxiety, tubal ligation, . Urine drug screen is pending. Subjective : 08/26: Late entry note. Patient seen at 6 AM. no acute change in neurological status overnight. Patient remains encephalopathic. CT of brain showed diffuse cerebral edema most likely anoxic injury. EEG performed this a.m., results. The patient remains hemodynamically unstable on now 3 vasopressor vacations epinephrine, Levophed, phenylephrine. Patient was noted to have low bicarb level . Sodium bicarbonate infusion and also instituted. Extensive discussion with family with palliative care patient was made DNR/alternate CODE STATUS. Family members in route to include mother from out of town. Patient noted to be on maximum doses of vasopressor, vasopressin added to medication regimen. Repeat ABG pending. Neurological evaluation performed, prognosis is very poor, with no possible meaningful neurological recovery. 08/27: The patient remains encephalopathic. The patient was still requiring 3 pressors to maintain perfusion pressure. Family arrived last night, some family members requesting cerebral blood flow study, and any and all studies for neurological function. EEG resulted yesterday electro silence. Discussed case with Dr. Hill and Dr. Abbott. Plan was initially for MRI and cerebral blood flow studies to be obtained after conversation/confirmation with healthcare proxy (patient's daughters). An extensive meeting occurred with Dr. Hill and family and this evening, the family ( 2 daughters, POA) decided for institution of comfort care measures/withdrawal tentatively at 1300 tomorrow.Hemoglobin stable patient was noted to have positive Hemoccult stool GI has been consulted the patient continues on famotidine twice daily. We will continue serial hemoglobin monitoring. 08/28: Late entry note. Patient seen at 1130am. The patient remains encephalopathic hemodynamically stable on 3 vasopressors. [facility] contacted family member Lesvia, healthcare surrogate, and decision made to perform apnea test/brain study, for evaluation for possible organ transplantation. I discussed with Lesvia, explained the evaluation process, and plan is for brain evaluation this afternoon. Objective Vital Signs Date Time Temp Pulse Resp B/P (MAP) Pulse Ox O2 Delivery O2 Flow Rate FiO2 08/28/17 13:23 103 135/72 08/28/17 13:00 98.1 20 99 08/28/17 12:00 100 08/25/17 18:58 Ventilator Intake and Output 08/28/17 08/28/17 08/29/17 08:00 16:00 00:00 Intake Total 300 ml Output Total 900 ml Balance -600 ml Result Diagram: 08/28/17 0440 08/28/17 0440 Other Results Microbiology Date/Time Source Procedure Growth Status 08/25/17 20:10 Stool Stool Stool Occult Blood (PRESTON) - Final HEMOCCULT POSITIVE Complete Laboratory Tests Test 08/27/17 17:09 08/28/17 05:26 08/28/17 12:36 Blood Gas Puncture Site ART LINE ART LINE LT RADIAL Blood Gas Patient Temperature 98.6 98.6 98.6 Blood Gas HCO3 27 mmol/L (22-26) 27 mmol/L (22-26) 27 mmol/L (22-26) Blood Gas Base Excess 2.5 mmol/L (-2-2) 3.6 mmol/L (-2-2) 3.7 mmol/L (-2-2) Blood Gas Oxygen Saturation 96 % (90-100) 97 % (90-100) 98 % (90-100) Arterial Blood pH 7.38 (7.380-7.420) 7.47 (7.380-7.420) 7.48 (7.380-7.420) Arterial Blood Partial Pressure CO2 48 mmHg (38-42) 38 mmHg (38-42) 37 mmHg (38-42) Arterial Blood Partial Pressure O2 124 mmHg (61-120) 155 mmHg (61-120) 228 mmHg (61-120) Arterial Blood Oxygen Content 17.2 Vol % (12.0-20.0) 19.0 Vol % (12.0-20.0) 16.1 Vol % (12.0-20.0) Arterial Blood Carboxyhemoglobin 0.6 % (0-4) 0.5 % (0-4) 0.6 % (0-4) Arterial Blood Methemoglobin 1.5 % (0-2) 1.7 % (0-2) 1.1 % (0-2) Blood Gas Hemoglobin 12.5 G/DL (12.0-16.0) 13.8 G/DL (12.0-16.0) 11.3 G/DL (12.0-16.0) Oxygen Delivery Device VENTILATOR VENT VENTILATOR Blood Gas Ventilator Setting PRVC/AC SEE COMMENTS PRVC/AC Blood Gas Inspired Oxygen 80 % 65 % 100 % Imaging Last Impressions Chest X-Ray 08/28/17 06 Signed Impressions: Service Date/Time: Monday, August 28, 2017 05:25 - CONCLUSION: No significant interval change with persistent left lower lobe consolidation versus atelectasis and small left pleural effusion. Neal Rodriguez MD Head CT 08/25/17 7704 Signed Impressions: Service Date/Time: Friday, August 25, 2017 19:34 - CONCLUSION: Diffuse cerebral edema suspicious for an anoxic event. Damien Tobar MD FACR Last Impressions Chest X-Ray 08/27/17 0600 Signed Impressions: Service Date/Time: Sunday, August 27, 2017 04:54 - CONCLUSION: New left lower lobe atelectasis versus consolidation. Small left pleural effusion. Neal Rodriguez MD Head CT [id number] Signed Impressions: Service Date/Time: Friday, August 25, 2017 19:34 - CONCLUSION: Diffuse cerebral edema suspicious for an anoxic event. Damien Tobar MD FACR Last Impressions Head CT [id number] Signed Impressions: Service Date/Time: Friday, August 25, 2017 19:34 - CONCLUSION: Diffuse cerebral edema suspicious for an anoxic event. Damien Tobar MD FACR Chest X-Ray [id number] Signed Impressions: Service Date/Time: Friday, August 25, 2017 16:36 - CONCLUSION: 1. Support equipment in good position. 2. The lungs are clear. Cuate Tobar MD Last Impressions Chest X-Ray [id number] Signed Impressions: Service Date/Time: Friday, August 25, 2017 16:36 - CONCLUSION: 1. Support equipment in good position. 2. The lungs are clear. Cuate Tobar MD Objective Remarks GENERAL: This is a 42-year-old well-developed well-nourished female, intubated unresponsive SKIN: Warm and dry. HEAD: Atraumatic. Normocephalic. EYES: Pupils equal and round. 5 -6 mm fixed and dilated . No corneal reflexes. no scleral icterus. No injection or drainage. ENT: No nasal bleeding or discharge. Mucous membranes pink and moist. NECK: Trachea midline. No JVD. CARDIOVASCULAR: Normal rate, regular rhythm. RESPIRATORY: Mechanical ventilation . Apneic not overbreathing the ventilator. clear to auscultation. Breath sounds equal bilaterally. GASTROINTESTINAL: Abdomen soft, non-tender, nondistended. No guarding. Hypoactive bowel sounds MUSCULOSKELETAL: Extremities without clubbing, cyanosis, or edema. No obvious deformities. NEUROLOGICAL: GCS 3T. No sedation ever received. No movement to painful stimuli. Negative cough, gag, corneal reflexes. Date of Insertion: Aug 25, 2017 A/P Problem List: (1) Suicidal intent ICD Code: R45.851 - Suicidal ideations Status: Acute (2) Cardiac arrest, cause unspecified ICD Code: I46.9 - Cardiac arrest, cause unspecified Status: Acute (3) Bipolar 1 disorder ICD Code: F31.9 - Bipolar disorder, unspecified Status: Chronic (4) Hypoglycemia ICD Code: E16.2 - Hypoglycemia, unspecified Status: Acute (5) Transaminitis ICD Code: R74.0 - Nonspecific elevation of levels of transaminase and lactic acid dehydrogenase [LDH] Status: Acute (6) JAGDISH (acute kidney injury) ICD Code: N17.9 - Acute kidney failure, unspecified Status: Acute (7) Acute hypoxemic respiratory failure ICD Code: J96.01 - Acute respiratory failure with hypoxia Status: Acute (8) Hypothermia due to non-environmental cause ICD Code: T68.XXXA - Hypothermia, initial encounter Status: Acute (9) Rhabdomyolysis ICD Code: M62.82 - Rhabdomyolysis Status: Acute Assessment and Plan Plan by systems: Neurologic: Anoxic brain injury Hypothermia Neuro checks per ICU protocol Avoid all sedatives Apply bairhugger and maintain normothermia temperature 37 Avoid acetaminophen secondary to elevated LFT's 08/25 CT brain-diffuse cerebral edema suspicious for anoxic event 08/26 EEG-results pending Neurology-Dr. Abbott following-evaluation no meaningful neurological recovery anticipated 08/27 Ammonia level-24 08/25 urine drug screen-positive for benzodiazepines, cocaine 08/26 Poison control following-no further recommendations at this time 08/25 Flumazenil given on 08/25 no response 08/28 Brain evaluation Respiratory: Acute hypoxemic respiratory failure Tobacco use disorder Mixed acidosis-resolved Maintain O2 saturation greater than 92% Duo nebs every 6 hours schedule every 2 hours as needed Ventilator bundle Obtain ABG wean FiO2 as tolerated 08/27 FIO2 decreased 50% 08/27 chest x-ray left lower lobe consolidation 08/28 apnea test Cardiovascular: Cardiogenic shock S/P cardiac arrest 08/25 08/26 echo [id number] results 08/26 EKG- QT interval no change Patient currently on norepinephrine, phenylephrine, epi and vasopressin to be initiated Maintain MAP> 65mmHg BNP WNL Monitor flowtrach- hemodynamic profile Renal: JAGDISH Rhabdomyolysis Insert Zapien and maintain Monitor creatinine kinase levels-initial 1241 Most likely secondary to hypotension -- Strict I/Os FEN/GI: Electrolyte derangement Transaminitis/shock liver secondary to hypo-perfusion Insert OGT-maintain NPO status for now-and hemodynamically unstable on 3 vasopressors Monitor BMP Creatinine improved Zofran for nausea Famotidine GI prophylaxis-hemooccult positive, Will replete electrolytes as needed 08/25 hepatitis panel- Hep C IgG antibody positive 08/28 Hypokalemia-repleted with 40 meq KCl , Heme/ID: Leukocytosis Monitor CBC Obtain cultures if clinically indicated Endocrine: Hypoglycemia Glucose monitoring per ICU protocol, low-dose regimen -- SSI Prophylaxis: GI Prophylaxis Famotidine DVT Prophylaxis -- SCDs Heparin 5000u SQ BID placed on hold Lines: Peripheral IVs x2. Left IJ central line 08/25, right radial A-line 08/26- dc'd 08/28 Dispo: my billing statement This patient remains critically ill with one or more organ systems which are or may become a threat to life. I have spent in excess of 63 minutes discontinuously in the care and management of this patient. This time is exclusive of procedures, and includes, but is not limited to, evaluation of the patient, review of the medical record, discussions with family, consultants, nursing staff, or respiratory therapy, and documentation in the medical record. 08/26: Dr. Hill met with family, see note. Extensive discussion with family patient may alternate CODE STATUS.. Patient requiring escalating doses of vasopressors in order to maintain blood pressure. Patient's mother and rest of the family enroute from out of town, continue aggressive measures short of ACLS protocol to include chest compressions and defibrillation. Katya Polk and to see family, tentative plan to meet with family this evening upon their arrival, upon request. 08/27: Dr. Hill had extensive discussion with family family currently not at bedside, family members requesting cerebral blood flow studies. Awaiting contact with healthcare proxy patient's daughters to discuss EEG revealed electrocerebral silence. Also telephoned and discussed with Dr. Abbott, possible plan for cerebral blood flow studies and MRI at family's request. Patient has severe anoxic encephalopathy, poor prognosis. EEG was electroclinical silent. At 1805-discussion with Dr. Hill, after extensive family meeting for several hours. Family requests comfort care measures/ withdrawal to be instituted at 1300 08/28/17. Family, healthcare proxy' s, Payton, requests no additional studies be performed to include CBF or MRI. All questions answered. 08/28:Magnet Valve Assembler arrived, family at bedside to include POA healthcare surrogates ( Payton). Plan for brain evaluation/apnea test by Dr. Cooper and I. [facility] aware. Physician Tiarra Lieberman MD Aug 28, 2017 14:04
--- NOTE | 2017-08-28 14:50 | HHI.DS ---
Summary Note Date of : Aug 28, 2017 Time Of : 14:35 Admission Date Aug 25, 2017 at 18:23 Admitting Diagnosis S/P CARDIAC ARREST Diagnosis at Time of : Brief History HPI This is a 42-year-old female ,per EMS patient apparently just released from care home yesterday, she has had a hard time dealing with the fact that her significant other overdose and . And the family has mentioned that she has threatened in the past to commit suicide, apparently the patient has access not only to opiates on the streets but also sees prescribed benzodiazepines such as Xanax. Per EMS/ED report the patient was found unresponsive last known seen responsive/ normal approximately 2 hours prior to discovery at approximately 1358. At that time,upon arrival to of EMS personnel the patient pupils were fixed and dilated and the patient was apneic the patient was intubated, CPR initiated with ROSC after Narcan and several rounds of epinephrine. Upon initial presentation systolic blood pressure was 80s-90's. In the ED the patient received approximately 3 L of fluid. Critical care medicine was consulted. Phenylephrine infusion had been ordered but not set up for the patient. Upon my arrival to the ED the patient was noted to have a blood pressure 53/30, Levophed infusion was ordered. Emergent central line placed, and norepinephrine , phenylephrine, and epinephrine initiated. A second dose of naloxone was given with no response. Upon evaluation, pupils were noted to be 5-6 millimeters fixed and dilated. No response to painful stimuli, no gag, cough, or corneal reflexes were noted. EEG ,CT brain pending. Per chart review past medical history significant for Dilaudid IV use, Xanax use caffeine use, half a pack per day smoking history, bipolar history, depression anxiety, tubal ligation, . Urine drug screen is pending. History PFSH Past Medical History Bipolar Disorder: Yes Anxiety: Yes Depression: Yes Cancer: No Cardiovascular Problems: No Diminished Hearing: No Endocrine: No Genitourinary: No Immune Disorder: No Insomnia: Yes Musculoskeletal: No Neurologic: Yes Psychiatric: Yes Reproductive: No (VAGINAL DELIVERIES X4) Respiratory: No Immunizations Current: No Para: 4 Tubal Ligation: Yes Past Surgical History Body Medical Devices: PIERCING OF NOSE,TONGUE AND BILATERAL EARS- NO JEWELRY IN PLACE Gynecologic Surgery: Yes (TUBAL) Social History Alcohol Use: No Tobacco Use: Yes (1/2 ppd) Substance Use: Yes (LAST USE "DILAUDID IV" AT 5 PM) Allergies-Medications Allergies-Medications (Allergen,Severity, Reaction): Coded Allergies: cephalexin (Unverified Allergy, Severe, 01/05/17) Reported Meds & Prescriptions Reported Meds & Active Scripts Active Diclofenac Sodium 75 Mg Tab 75 Mg PO BID PRN 10 Days Reported Lexapro (Escitalopram Oxalate) 20 Mg Tab 20 Mg PO DAILY Seroquel 100 mg (Quetiapine Fumarate) 100 Mg Tab 100 Mg PO BID Ibuprofen 600 Mg Tab 600 Mg PO QID PRN ROS Review of Systems ROS Limitations: Clinical Condition CBC/BMP: 08/28/17 0440 08/28/17 0440 Significant Findings Laboratory Tests Test 08/25/17 16:33 08/25/17 19:16 08/25/17 20:10 08/25/17 21:00 White Blood Count 11.9 TH/MM3 (4.0-11.0) Neutrophils (%) (Auto) 79.1 % (16.0-70.0) Monocytes (%) (Auto) 9.3 % (0.0-8.0) Neutrophils # (Auto) 9.4 TH/MM3 (1.8-7.7) Monocytes # (Auto) 1.1 TH/MM3 (0-0.9) Blood Urea Nitrogen 21 MG/DL (7-18) Creatinine 2.24 MG/DL (0.50-1.00) Random Glucose 64 MG/DL (74-106) Alkaline Phosphatase 194 U/L (45-117) Aspartate Amino Transf (AST/SGOT) 1358 U/L (15-37) Alanine Aminotransferase (ALT/SGPT) 867 U/L (10-53) Carbon Dioxide Level 15.9 MEQ/L (21.0-32.0) Anion Gap 20 MEQ/L (5-15) Estimat Glomerular Filtration Rate 24 ML/MIN (>89) Total Creatine Kinase 1241 U/L (26-192) Creatine Kinase MB 25.5 NG/ML (0.5-3.6) Troponin I 0.26 NG/ML (0.02-0.05) Acetaminophen Level LESS THAN 2.0 MCG/ML Urine Protein 30 mg/dL (NEG-TRACE) Urine Occult Blood MOD (NEG) Urine Bacteria RARE /hpf (NONE) Urine Mucus FEW /lpf (OCC) Urine Osmolality 286 MOSM/KG (300-1300) Urine Benzodiazepines Screen POS (NEG) POS (NEG) Urine Cocaine Screen POS (NEG) POS (NEG) Blood Gas HCO3 16 mmol/L (22-26) Blood Gas Base Excess -8.7 mmol/L (-2-2) Arterial Blood pH 7.31 (7.380-7.420) Arterial Blood Partial Pressure CO2 34 mmHg (38-42) Arterial Blood Partial Pressure O2 149 mmHg (61-120) Lactic Acid Level 3.6 mmol/L (0.4-2.0) Hepatitis C IgG Antibody REACTIVE (NONREACTIVE) Test 08/25/17 23:00 08/26/17 00:15 08/26/17 02:15 08/26/17 05:25 Lactic Acid Level 3.4 mmol/L (0.4-2.0) Direct Bilirubin 0.4 MG/DL (0.0-0.2) Aspartate Amino Transf (AST/SGOT) 1617 U/L (15-37) 1496 U/L (15-37) Alanine Aminotransferase (ALT/SGPT) 818 U/L (10-53) 776 U/L (10-53) Alkaline Phosphatase 140 U/L (45-117) 142 U/L (45-117) Total Protein 5.8 GM/DL (6.4-8.2) 5.6 GM/DL (6.4-8.2) Albumin 2.7 GM/DL (3.4-5.0) 2.7 GM/DL (3.4-5.0) Acetaminophen Level LESS THAN 2.0 MCG/ML White Blood Count 2.4 TH/MM3 (4.0-11.0) Platelet Count 136 TH/MM3 (150-450) Neutrophils (%) (Auto) 81.3 % (16.0-70.0) Lymphocytes # (Auto) 0.3 TH/MM3 (1.0-4.8) Prothrombin Time 12.3 SEC (9.8-11.6) Blood Urea Nitrogen 21 MG/DL (7-18) Creatinine 1.53 MG/DL (0.50-1.00) Random Glucose 130 MG/DL (74-106) Calcium Level 7.1 MG/DL (8.5-10.1) Potassium Level 2.8 MEQ/L (3.5-5.1) Chloride Level 115 MEQ/L (98-107) Carbon Dioxide Level 19.4 MEQ/L (21.0-32.0) Estimat Glomerular Filtration Rate 38 ML/MIN (>89) Protein Corrected Calcium 7.9 MG/DL (8.5-10.1) Test 08/26/17 13:55 08/26/17 14:49 08/26/17 15:00 08/26/17 16:06 Blood Gas HCO3 20 mmol/L (22-26) 19 mmol/L (22-26) Blood Gas Base Excess -8.9 mmol/L (-2-2) -8.4 mmol/L (-2-2) Arterial Blood pH 7.07 (7.380-7.420) 7.13 (7.380-7.420) Arterial Blood Partial Pressure CO2 72 mmHg (38-42) 60 mmHg (38-42) Arterial Blood Oxygen Content 20.7 Vol % (12.0-20.0) Potassium Level 3.2 MEQ/L (3.5-5.1) Lactic Acid Level 2.8 mmol/L (0.4-2.0) Test 08/26/17 17:10 08/27/17 02:00 08/27/17 04:30 08/27/17 06:00 Blood Gas HCO3 20 mmol/L (22-26) Blood Gas Base Excess -6.9 mmol/L (-2-2) -2.3 mmol/L (-2-2) Arterial Blood pH 7.21 (7.380-7.420) Arterial Blood Partial Pressure CO2 51 mmHg (38-42) Arterial Blood Partial Pressure O2 151 mmHg (61-120) Platelet Count 122 TH/MM3 (150-450) Band Neutrophils % 62 % (0-6) Lymphocytes % 7 % (9-44) Metamyelocytes 3 % (0-1) Platelet Estimate LOW (NORMAL) Blood Urea Nitrogen 20 MG/DL (7-18) Creatinine 1.13 MG/DL (0.50-1.00) Random Glucose 141 MG/DL (74-106) Total Protein 5.0 GM/DL (6.4-8.2) Albumin 2.1 GM/DL (3.4-5.0) Calcium Level 6.8 MG/DL (8.5-10.1) Magnesium Level 1.1 MG/DL (1.5-2.5) Aspartate Amino Transf (AST/SGOT) 441 U/L (15-37) Alanine Aminotransferase (ALT/SGPT) 483 U/L (10-53) Estimat Glomerular Filtration Rate 53 ML/MIN (>89) Protein Corrected Calcium 7.9 MG/DL (8.5-10.1) Test 08/27/17 14:12 08/27/17 17:09 08/27/17 18:56 08/27/17 23:15 Total Creatine Kinase 1069 U/L (26-192) Creatine Kinase MB 21.3 NG/ML (0.5-3.6) Troponin I 0.92 NG/ML (0.02-0.05) Blood Gas HCO3 27 mmol/L (22-26) Blood Gas Base Excess 2.5 mmol/L (-2-2) Arterial Blood Partial Pressure CO2 48 mmHg (38-42) Arterial Blood Partial Pressure O2 124 mmHg (61-120) Magnesium Level 3.1 MG/DL (1.5-2.5) Test 08/28/17 04:40 08/28/17 05:26 08/28/17 12:36 08/28/17 14:30 Red Blood Count 3.67 MIL/MM3 (4.00-5.30) Hematocrit 33.2 % (35.0-46.0) Platelet Count 93 TH/MM3 (150-450) Blood Urea Nitrogen 20 MG/DL (7-18) Creatinine 1.04 MG/DL (0.50-1.00) Random Glucose 110 MG/DL (74-106) Total Protein 4.6 GM/DL (6.4-8.2) Albumin 1.7 GM/DL (3.4-5.0) Calcium Level 7.0 MG/DL (8.5-10.1) Phosphorus Level 1.6 MG/DL (2.5-4.9) Aspartate Amino Transf (AST/SGOT) 197 U/L (15-37) Alanine Aminotransferase (ALT/SGPT) 291 U/L (10-53) Sodium Level 134 MEQ/L (136-145) Potassium Level 2.6 MEQ/L (3.5-5.1) Chloride Level 96 MEQ/L (98-107) Estimat Glomerular Filtration Rate 59 ML/MIN (>89) Protein Corrected Calcium 8.4 MG/DL (8.5-10.1) Total Creatine Kinase 1259 U/L (26-192) Creatine Kinase MB 10.0 NG/ML (0.5-3.6) Blood Gas HCO3 27 mmol/L (22-26) 27 mmol/L (22-26) 31 mmol/L (22-26) Blood Gas Base Excess 3.6 mmol/L (-2-2) 3.7 mmol/L (-2-2) 4.3 mmol/L (-2-2) Arterial Blood pH 7.47 (7.380-7.420) 7.48 (7.380-7.420) 7.24 (7.380-7.420) Arterial Blood Partial Pressure O2 155 mmHg (61-120) 228 mmHg (61-120) 321 mmHg (61-120) Arterial Blood Partial Pressure CO2 37 mmHg (38-42) 77 mmHg (38-42) Blood Gas Hemoglobin 11.3 G/DL (12.0-16.0) 11.6 G/DL (12.0-16.0) Imaging Last Impressions Chest X-Ray [id number]/17599 Signed Impressions: Service Date/Time: Monday, August 28, 2017 05:25 - CONCLUSION: No significant interval change with persistent left lower lobe consolidation versus atelectasis and small left pleural effusion. Neal Rodriguez MD Head CT [id number] Signed Impressions: Service Date/Time: Friday, August 25, 2017 19:34 - CONCLUSION: Diffuse cerebral edema suspicious for an anoxic event. Damien Tobar MD FACR Last Impressions Chest X-Ray [id number]/[id number] Signed Impressions: Service Date/Time: Sunday, August 27, 2017 04:54 - CONCLUSION: New left lower lobe atelectasis versus consolidation. Small left pleural effusion. Neal Rodriguez MD Head CT [id number] Signed Impressions: Service Date/Time: Friday, August 25, 2017 19:34 - CONCLUSION: Diffuse cerebral edema suspicious for an anoxic event. Damien Tobar MD FACR Last Impressions Head CT [id number] Signed Impressions: Service Date/Time: Friday, August 25, 2017 19:34 - CONCLUSION: Diffuse cerebral edema suspicious for an anoxic event. Damien Tobar MD FACR Chest X-Ray [id number] Signed Impressions: Service Date/Time: Friday, August 25, 2017 16:36 - CONCLUSION: 1. Support equipment in good position. 2. The lungs are clear. Cuate Tobar MD Last Impressions Chest X-Ray 08/25/17 1620 Signed Impressions: Service Date/Time: Friday, August 25, 2017 16:36 - CONCLUSION: 1. Support equipment in good position. 2. The lungs are clear. Cuate Tobar MD Hospital Course This is a 42-year-old female ,per EMS patient apparently just released from care home yesterday, she has had a hard time dealing with the fact that her significant other overdose and . And the family has mentioned that she has threatened in the past to commit suicide, apparently the patient has access not only to opiates on the streets but also sees prescribed benzodiazepines such as Xanax. Per EMS/ED report the patient was found unresponsive last known seen responsive/ normal approximately 2 hours prior to discovery at approximately 1358. At that time,upon arrival to of EMS personnel the patient pupils were fixed and dilated and the patient was apneic the patient was intubated, CPR initiated with ROSC after Narcan and several rounds of epinephrine. Upon initial presentation systolic blood pressure was 80s-90's. In the ED the patient received approximately 3 L of fluid. Critical care medicine was consulted. Phenylephrine infusion had been ordered but not set up for the patient. Upon my arrival to the ED the patient was noted to have a blood pressure 53/30, Levophed infusion was ordered. Emergent central line placed, and norepinephrine , phenylephrine, and epinephrine initiated. A second dose of naloxone was given with no response. Upon evaluation, pupils were noted to be 5-6 millimeters fixed and dilated. No response to painful stimuli, no gag, cough, or corneal reflexes were noted. EEG ,CT brain pending. Per chart review past medical history significant for Dilaudid IV use, Xanax use caffeine use, half a pack per day smoking history, bipolar history, depression anxiety, tubal ligation, . Urine drug screen is pending. Subjective : 08/26: Late entry note. Patient seen at 6 AM. no acute change in neurological status overnight. Patient remains encephalopathic. CT of brain showed diffuse cerebral edema most likely anoxic injury. EEG performed this a.m., results. The patient remains hemodynamically unstable on now 3 vasopressor vacations epinephrine, Levophed, phenylephrine. Patient was noted to have low bicarb level . Sodium bicarbonate infusion and also instituted. Extensive discussion with family with palliative care patient was made DNR/alternate CODE STATUS. Family members in route to include mother from out of town. Patient noted to be on maximum doses of vasopressor, vasopressin added to medication regimen. Repeat ABG pending. Neurological evaluation performed, prognosis is very poor, with no possible meaningful neurological recovery. 08/27: The patient remains encephalopathic. The patient was still requiring 3 pressors to maintain perfusion pressure. Family arrived last night, some family members requesting cerebral blood flow study, and any and all studies for neurological function. EEG resulted yesterday electro silence. Discussed case with Dr. Hill and Dr. Abbott. Plan was initially for MRI and cerebral blood flow studies to be obtained after conversation/confirmation with healthcare proxy (patient's daughters). An extensive meeting occurred with Dr. Hill and family and this evening, the family ( 2 daughters, POA) decided for institution of comfort care measures/withdrawal tentatively at 1300 tomorrow.Hemoglobin stable patient was noted to have positive Hemoccult stool GI has been consulted the patient continues on famotidine twice daily. We will continue serial hemoglobin monitoring. 08/28: Late entry note. Patient seen at 1130am. The patient remains encephalopathic hemodynamically stable on 3 vasopressors. [facility] contacted family member Lesvia, healthcare surrogate, and decision made to perform apnea test/brain study, for evaluation for possible organ transplantation. I discussed with Lesvia, explain the process, and plan is for brain evaluation this afternoon. 08/28: 1435-brain /apnea test evaluation completed by myself and Dr. Cooper. Patient declared brain at 1435. Time of 1435. Family informed, with clergy present. Tiarra Malone MD Aug 28, 2017 14:50
== END 2017-08-28 14:35 | disposition expired | DRG 917 ==
LOC: NEPE 16:11 → NEDA 18:23 → HIMN 19:50
PROVIDERS: ADMIT Anesthesiology; ATTEND Anesthesiology
PROC: 5A1945Z Respiratory Ventilation, 24-96 Consecutive Hours (ICD-10-PCS; principal; 2017-08-25)
PROC: 02HV33Z Insertion of Infusion Device into Superior Vena Cava, Percutaneous Approach (ICD-10-PCS; 2017-08-25)
DX: T50.902A Poisoning by unspecified drugs, medicaments and biological substances, intentional self-harm, initial encounter (principal); J96.01 Acute respiratory failure with hypoxia; G93.6 Cerebral edema; Z51.5 Encounter for palliative care; I21.29 ST elevation (STEMI) myocardial infarction involving other sites; K72.00 Acute and subacute hepatic failure without coma; G92 Toxic encephalopathy; G93.1 Anoxic brain damage, not elsewhere classified; N17.9 Acute kidney failure, unspecified; M62.82 Rhabdomyolysis; E87.4 Mixed disorder of acid-base balance; R57.0 Cardiogenic shock; E16.2 Hypoglycemia, unspecified; F31.9 Bipolar disorder, unspecified; G47.00 Insomnia, unspecified; F17.200 Nicotine dependence, unspecified, uncomplicated; I45.19 Other right bundle-branch block; R68.0 Hypothermia, not associated with low environmental temperature; D72.829 Elevated white blood cell count, unspecified; G89.4 Chronic pain syndrome; Z66 Do not resuscitate; B19.20 Unspecified viral hepatitis C without hepatic coma; E87.6 Hypokalemia; F10.10 Alcohol abuse, uncomplicated; F11.10 Opioid abuse, uncomplicated; F13.10 Sedative, hypnotic or anxiolytic abuse, uncomplicated; Y90.0 Blood alcohol level of less than 20 mg/100 ml; Z81.3 Family history of other psychoactive substance abuse and dependence; Z88.1 Allergy status to other antibiotic agents; Z91.410 Personal history of adult physical and sexual abuse; Z91.5 Personal history of self-harm
CPT/HCPCS: 36600; 36620; 70450; 71045; 80053; 80074; 80076; 80307; 81001; 82140; 82272; 82533; 82550; 82552; 82805; 82948; 83605; 83690; 83735; 83880; 83935; 84100; 84132; 84443; 84484; 84703; 85007; 85014; 85018; 85025; 85027; 85610; 85730; 87493; 87641; 93005; 93306; 94002; 94003; 94640; 94664; 95819; J0171; J1644; J1815; J2310; J2370; J3475; J3480; J7030; J7040; J7050; J7060